=== PATIENT | female | born 1935 | race Hispanic/Latino ===

== ENCOUNTER 2016-05-20 19:05 | Inpatient (IN) | payer MEDICARE, MEDICAID ==
[2016-05-20 19:11] VITALS: BMI 21.2
[2016-05-20 20:05] LABS: ADD MANUAL DIFF? NO
[2016-05-20 20:10] LABS: BASO # 0.01 K/mm3 (0.0-2.0); BASO % 0.1 % (0.0-3.0); EOS # 0.1 (0.0-0.7); EOS % 0.5 % (1.5-5.0); GRAN # 7.93 (1.4-6.5); GRAN % 79.8 % (50.0-68.0); HEMATOCRIT 39.4 % (36.0-48.0); LYMPH # 1.2 (1.2-3.4); LYMPH % 11.7 % (22.0-35.0); MEAN CELL VOLUME 88.3 fL (80.0-105.0); MEAN CORPUSCULAR HEMOGLOBIN 28.7 pg (25.0-35.0); MEAN CORPUSCULAR HGB CONC 32.5 g/dl (31.0-37.0); MEAN PLATELET VOLUME 11.4 fl (7.0-11.0); MONO # 0.8 (0.1-0.6); MONO % 7.9 % (1.0-6.0); PLATELET COUNT 247 10^3/uL (120.0-450.0); RED CELL DISTRIBUTION WIDTH 13.4 % (11.5-14.5); WHITE BLOOD COUNT 9.9 10^3/ul (4.5-11.0)
[2016-05-20 20:19] LABS: ALB/GLOB RATIO 1.2 (1.1-1.8); ALKALINE PHOSPHATASE 84 U/L (38-133); ALT/SGPT 18 U/L (7-56); AST/SGOT 34 U/L (15-39); BILIRUBIN,TOTAL 0.8 mg/dL (0.2-1.3); BLOOD UREA NITROGEN 22 mg/dL (7-21); CALCIUM 9.3 mg/dL (8.4-10.5); CARBON DIOXIDE 32 mmol/L (21-33); CHLORIDE 103 mmol/L (98-107); GFR AFRICAN-AMERICAN > 60; GLUCOSE,RANDOM 120 mg/dL (70-110); LIPASE 73 U/L (23-300); SODIUM 142 mmol/L (132-148); TOTAL PROTEIN 7.4 g/dL (5.8-8.3)
[2016-05-20 20:40] LABS: TROPONIN I < 0.01 ng/mL
[2016-05-20] MEDS: Sodium Chloride 0.9% 1,000 ML IV SCH (21:02)
--- NOTE | 2016-05-20 21:02 | ED PDOC ---
Arrival/HPI - General Chief Complaint: Flu-like Symptoms Time Seen by Provider: 05/20/16 19:11 Historian: Patient - History of Present Illness Narrative History of Present Illness (Text): 05/20/16 19:20 Emerita Luna is an 81 year old female, whose past medical history includes COPD, CAD, and bowel obstruction, who presents to the Emergency department for dizziness. Patient states she has been feeling dizzy and near syncopal with 1 episode of vomiting since yesterday. Patient notes she was recently exposed to someone with influenza. Patient denies any fever, chills, chest pain, shortness of breath, nausea, diarrhea, urinary symptoms, back pain, neck pain, headache, blurred vision, focal neurological deficits, or any other complaints. PMD: Dr. Page Gonzalez Time/Duration: Other (yesterday) Symptom Onset: Gradual Symptom Course: Unchanged Activities at Onset: Rest, Light Context: Home Past Medical History - Provider Review Nursing Documentation Reviewed: Yes - Tetanus Immunization Tetanus Immunization: Unknown - Cardiac Hx Hypertension: Yes - Pulmonary Hx Asthma: Yes Hx Bronchitis: Yes Hx Chronic Obstructive Pulmonary Disease (COPD): Yes - HEENT Other/Comment: TONSILLECTOMY - Musculoskeletal/Rheumatological Hx Falls: No Hx Unsteady Gait: Yes (CANE) - Gastrointestinal Hx Gastroesophageal Reflux: Yes - Psychiatric Hx Depression: No Hx Emotional Abuse: No Hx Physical Abuse: No Hx Substance Use: No - Surgical History Hx Appendectomy: Yes Hx Hysterectomy: Yes Hx Tonsillectomy: Yes - Suicidal Assessment Feels Threatened In Home Enviroment: No Family/Social History - Physician Review Nursing Documentation Reviewed: Yes Family/Social History: No Known Family HX Smoking Status: Former Smoker Hx Alcohol Use: No Hx Substance Use: No Hx Substance Use Treatment: No Allergies/Home Meds Allergies/Adverse Reactions: Allergies No Known Allergies Allergy (Verified 01/26/16 16:16) Home Medications: Home Meds Medication Instructions Recorded Confirmed Esomeprazole Magnesium [Nexium] 40 mg PO DAILY 10/26/11 05/21/16 Isosorbide Mononitrate 30 mg PO DAILY 10/26/11 05/21/16 Metoprolol Tartrate [Lopressor] 25 mg PO DAILY 01/26/16 05/21/16 Simvastatin [Zocor] 20 mg PO DAILY 01/26/16 05/21/16 Albuterol Sulfate [Proair Hfa] 0.09 mg IH PRN PRN 05/20/16 05/20/16 Review of Systems - Physician Review All systems were reviewed & negative as marked: Yes - Review of Systems Constitutional: Normal. absent: Fevers Eyes: Normal ENT: Normal Respiratory: Normal. absent: SOB Cardiovascular: Other (+near-syncopal). absent: Chest Pain Gastrointestinal: Vomiting. absent: Diarrhea Genitourinary Female: Normal. absent: Dysuria, Frequency, Hematuria, Urine Output Changes Musculoskeletal: Normal. absent: Back Pain, Neck Pain Skin: Normal. absent: Rash Neurological: Dizziness. absent: Headache Endocrine: Normal Hemo/Lymphatic: Normal Psychiatric: Normal Physical Exam Vital Signs Reviewed: Yes Vital Signs Temp Pulse Resp BP Pulse Ox 05/20/16 22:01 98.2 F 75 17 151/79 H 97 05/20/16 19:13 97.9 F 90 20 177/87 H 98 Temperature: Afebrile Blood Pressure: Hypertensive Pulse: Regular Respiratory Rate: Normal Appearance: Positive for: Well-Appearing, Non-Toxic, Comfortable Pain Distress: None Mental Status: Positive for: Alert and Oriented X 3 - Systems Exam Head: Present: Atraumatic, Normocephalic Pupils: Present: PERRL Extroacular Muscles: Present: EOMI Conjunctiva: Present: Normal Mouth: Present: Moist Mucous Membranes Neck: Present: Normal Range of Motion Respiratory/Chest: Present: Clear to Auscultation, Good Air Exchange. No: Respiratory Distress, Accessory Muscle Use Cardiovascular: Present: Regular Rate and Rhythm, Normal S1, S2. No: Murmurs Abdomen: Present: Normal Bowel Sounds. No: Tenderness, Distention, Peritoneal Signs Back: Present: Normal Inspection Upper Extremity: Present: Normal Inspection. No: Cyanosis, Edema Lower Extremity: Present: Normal Inspection. No: Edema Neurological: Present: GCS=15, CN II-XII Intact, Speech Normal Skin: Present: Warm, Dry, Normal Color. No: Rashes Psychiatric: Present: Alert, Oriented x 3, Normal Insight, Normal Concentration Medical Decision Making ED Course and Treatment: 05/20/16 19:20 Impression: 81 year old female complaining of dizziness, near-syncope, and vomiting. Plan: -- EKG -- CXR -- Labs, troponin, lipase, blood culture, rapid influenza -- Urinalysis, urine culture -- IV fluids -- Zofran -- Antivert -- Reassess and disposition Prior Visits: Notes and results from previous visits were reviewed. On 01/26/2016, pt was seen in the ED for weakness, nausea, and vomiting. Pt was d/c home. Progress Notes: Reviewed EKG, NSR at [address] bpm[address] Non-specific ST/T wave changes. 05/20/16 20:27 Reviewed radiology, Chest X-ray shows no active disease. 05/20/16 21:[address] Madi Gonzalez, who is aware and agrees with plan. Accepts pt in to his service. Pt will go to remote telemetry observation for near-syncope. Pt is no acute distress. Discussed results and hospital observation plan with pt , who is aware and verbalizes understanding. 05/25/16 07:05 - Lab Interpretations Microbiology Results: Microbiology Results 05/20/16 20:10 Blood-Venous Blood Culture - Preliminary NO GROWTH AFTER 4 DAYS 05/20/16 19:50 Blood-Venous Blood Culture - Preliminary NO GROWTH AFTER 4 DAYS 05/20/16 21:30 Urine,Clean Catch Urine Culture - Final 10-50,000 CFU/ML. MULTIPLE SPECIES. PROBABLE CONTAMINATION. Lab Results: 05/20/16 19:50 05/20/16 19:50 Lab Results 05/20/16 21:30: Urine Color Yellow, Urine Appearance Clear, Urine pH 7.0, Ur Specific Steele 1.015, Urine Protein Negative, Urine Glucose (UA) Negative, Urine Ketones Negative, Urine Blood Small H, Urine Nitrate Negative, Urine Bilirubin Negative, Urine Urobilinogen 0.2, Ur Leukocyte Esterase Trace H, Urine RBC 1 - 3, Urine WBC 2 - 5, Ur Epithelial Cells 3 - 4, Urine Bacteria Few 05/20/16 19:50: WBC 9.9 D, RBC 4.46, Hgb 12.8, Hct 39.4, MCV 88.3, MCH 28.7, MCHC 32.5, RDW 13.4, Plt Count 247, MPV 11.4 H, Gran % 79.8 H, Lymph % (Auto) 11.7 L, Gaines % (Auto) 7.9 H, Eos % (Auto) 0.5 L, Baso % (Auto) 0.1, Gran # 7.93 H, Lymph # 1.2, Gaines # 0.8 H, Eos # 0.1, Baso # 0.01, Sodium 142, Potassium 4.0 , Chloride 103, Carbon Dioxide 32, Anion Gap 11, BUN 22 H, Creatinine 0.7, Est GFR ( Amer) > 60, Est GFR (Non-Af Amer) > 60, Random Glucose 120 H, Calcium 9.3, Total Bilirubin 0.8, AST 34, ALT 18, Alkaline Phosphatase 84, Troponin I < 0.01, Total Protein 7.4, Albumin 4.1, Globulin 3.4, Albumin/ Globulin Ratio 1.2, Lipase 73, Influenza Typ A,B (EIA) Negative for flu a/b I have reviewed the lab results: Yes - RAD Interpretation Narrative RAD Interpretations (Text): Chest X-ray shows no active disease. Radiology Orders: 05/20/16 19:23 CHEST ONE VIEW [RAD] Stat Activities Assistant: ED Physician - EKG Interpretation EKG Interpretation (Text): EKG: Ordered, reviewed, and independently interpreted the EKG. Rate : 83 BPM Rhythm : NSR Interpretation : Non-specific ST/T wave changes. Comparison : No acute change from previous EKG on 01/26/16. Interpreted by ED Physician: Yes Type: 12 lead EKG - Medication Orders Current Medication Orders: Discontinued Medications Acetaminophen (Tylenol 325mg Tab) 650 mg PO Q4H PRN PRN Reason: Fever >100.5 F Last Admin: 05/21/16 19:20 Dose: 650 MG [facility] Pain/Vitals Document 05/21/16 19:20 MLK (Rec: 05/21/16 19:21 MLK [id number]) Pain Reassessment Is This A Pain ReAssessment? No Presence of Pain Presence of Pain Yes Location Left, Right or Bilateral Right Pain Location Body Site Jaw Re-Assess: [facility] Pain/Vitals Document 05/21/16 20:20 TANNER (Rec: 05/22/16 05:38 TANNER [id number]) Pain Reassessment Is This A Pain ReAssessment? Yes Sleep Is patient sleeping during reassessment? Yes Pain Scale Used Pain Scale Used Numeric Atorvastatin Calcium (Lipitor) 20 mg PO DIN BRITTNEY Last Admin: 05/22/16 17:37 Dose: 20 MG Sodium Chloride (Sodium Chloride 0.9%) 1,000 mls @ 80 mls/hr IV .[id number] [facility] Last Admin: 05/22/16 01:40 Dose: 80 MLS/HR eMAR Start Stop Document 05/22/16 01:40 TANNER (Rec: 05/22/16 05:37 TANNER [id number]) Intravenous Solution Start Date 05/22/16 Start Time 01:40 Ceftriaxone Sodium (Rocephin 1 Gram Ivpb) 100 mls @ 100 mls/hr IVPB DAILY [facility] PRN Reason: Protocol Last Admin: 05/23/16 09:27 Dose: 100 MLS/HR eMAR Start Stop Document 05/23/16 09:27 ML (Rec: 05/23/16 09:27 ML [id number]) Intravenous Solution Start Date 05/23/16 Start Time 09:27 End Date 05/23/16 End time 10:00 Total Infusion Time 33 Isosorbide Mononitrate (Imdur) 30 mg PO DAILY [facility] Last Admin: 05/23/16 09:27 Dose: 30 MG Meclizine HCl (Antivert) 12.5 mg PO STAT STA Stop: 05/20/16 19:24 Last Admin: 05/20/16 19:55 Dose: 12.5 MG Metoprolol Succinate (Toprol Xl) 25 mg PO BRK [facility] Last Admin: 05/23/16 08:19 Dose: 25 MG Ondansetron HCl (Zofran Inj) 4 mg IVP STAT STA Stop: 05/20/16 19:24 Last Admin: 05/20/16 19:55 Dose: 4 MG IVP Administration Document 05/20/16 19:55 RD (Rec: 05/20/16 19:55 RD [id number]) Charges for Administration # of IVP Administrations 1 Pantoprazole Sodium (Protonix Ec Tab) 40 mg PO 0630 [facility] Last Admin: 05/23/16 05:33 Dose: 40 MG - Scribe Statement The provider has reviewed the documentation as recorded by the Zarina Barnett Provider Attestation: All medical record entries made by the Armaniibfarzana were at my direction and personally dictated by me. I have reviewed the chart and agree that the record accurately reflects my personal performance of the history, physical exam, medical decision making, and the department course for this patient. I have also personally directed, reviewed, and agree with the discharge instructions and disposition. Disposition/Present on Arrival - Present on Arrival Any Indicators Present on Arrival: No History of DVT/PE: No History of Uncontrolled Diabetes: No Urinary Catheter: No History of Decub. Ulcer: No History Surgical Site Infection Following: None - Disposition Have Diagnosis and Disposition been Completed?: Yes Diagnosis: Near syncope Disposition: HOSPITALIZED Disposition Time: 21:25 Condition: GOOD
[2016-05-20 21:57] LABS: URINE BILIRUBIN NEGATIVE (NEGATIVE); URINE BLOOD SMALL (NEGATIVE); URINE GLUCOSE (UA) NEGATIVE (NEGATIVE); URINE KETONE NEGATIVE (NEGATIVE); URINE LEUKOCYTE ESTERASE TRACE Leu/uL (NEGATIVE); URINE PROTEIN NEGATIVE mg/dL (<30 mg/dL); URINE UROBILINOGEN 0.2 E.U./dL (<1 E.U./dL)
[2016-05-20 22:00] LABS: URINE APPEARANCE CLEAR (CLEAR); URINE COLOR YELLOW (YELLOW)
[2016-05-20 22:05] LABS: URINE BACTERIA FEW (NEG)
--- NOTE | 2016-05-21 08:38 | RAD ---
HISTORY: pain COMPARISON: Chest x-ray performed 01/26/16 TECHNIQUE: Chest, one view. FINDINGS: LUNGS: No focal consolidation. Please note that chest x-ray has limited sensitivity for the detection of pulmonary masses. PLEURA: No significant pleural effusion identified. No definite pneumothorax . CARDIOVASCULAR: The cardiomediastinal silhouette appears within normal limits of size. OSSEOUS STRUCTURES: No acute osseous abnormality identified. VISUALIZED UPPER ABDOMEN: Unremarkable. OTHER FINDINGS: None. IMPRESSION: No focal consolidation, significant pleural effusion, or definite pneumothorax identified.
[2016-05-21] MEDS: Sodium Chloride 0.9% 1,000 ML IV SCH (09:17)
--- NOTE | 2016-05-21 09:57 | CARD ---
APPROVED REPORT EKG Measurement Heart [id number] <Conclusion> Normal sinus rhythm PRWP V 1 - 3, possible lead positioning Otherwise no change c/w ECG 01/26/16
[2016-05-21] MEDS: Metoprolol Succinate 25 mg XL Tab PO SCH (12:59)
[2016-05-21] MEDS: cefTRIAXone 1 gm 100 ML IVPB SCH (13:00)
[2016-05-22] MEDS: Sodium Chloride 0.9% 1,000 ML IV SCH (01:40)
[2016-05-22] MEDS: Pantoprazole 40 mg EC Tab PO SCH (05:36)
[2016-05-22] MEDS: Metoprolol Succinate 25 mg XL Tab PO SCH (09:25)
[2016-05-22] MEDS: cefTRIAXone 1 gm 100 ML IVPB SCH (09:25)
--- NOTE | 2016-05-22 11:30 | HP ---
HISTORY OF PRESENT ILLNESS: The patient is an 81-year-old female who presented to the Emergency Room yesterday evening complaining of dizziness. She stated that she was near syncopal. She had 1 episo de of vomiting over the past day or 2. PAST MEDICAL HISTORY: Positive for coronary artery disease, chronic obstructive pulmonary disease. She also has a history of bowel obstruction in the past. She has a history of hypertension, bronchit is. HOME MEDICATIONS: Included Nexium 40 mg, isosorbide 30 mg, metoprolol tartrate 25 mg, simvastatin 20 mg, and ProAir HFA as needed. SOCIAL HISTORY: She is a former smoker, nonalcohol drinker. ALLERGIES: No known medical allergies. PHYSICAL EXAMINATION: VITAL SIGNS: Blood pressure is 151/79. Heart rate is 75, and she is afebrile. GENERAL: When see, she is awake, alert, and oriented. There is a rather massive swelling on the rig ht side of her face and jaw. The patient states that she has an abscess in her tooth, and was unable to get to see her dentist. NECK: Supple. It is tender to palpation. It is non-erythematous. Her neck is supple with no lymph adenopathy and no goiter appreciated. LUNGS: Clear, but distant. HEART: Heart sounds are regular. ABDOMEN: Soft, flat, nontender. EXTREMITIES: Free of cyanosis, clubbing, or edema. LABORATORY STUDIES: Show a white blood cell count to be 9.9. Hemoglobin and hematocrit are 12.8 and 39.4. Platelet count is 247. Sodium is 142, potassium 4.0. BUN is 25, creatinine 0.7. Nonfasting glucose is 120. Her chest x-ray shows no active disease. EKG shows regular sinus with an old anterior wall myocardial infarction. So the patient is admitted. I was surprised to see the swollen right side of her face with abscess. She is to be started on Rocephin for this, and we will follow the patient closely. Layton Gonzalez MD cc: [id number] TT: 05/22/2016 11:30:11 rosalia
[2016-05-22 15:52] LABS: HEMATOCRIT 35.2 % (36.0-48.0); MEAN CELL VOLUME 89.1 fL (80.0-105.0); MEAN CORPUSCULAR HEMOGLOBIN 28.9 pg (25.0-35.0); MEAN CORPUSCULAR HGB CONC 32.4 g/dl (31.0-37.0); RED CELL DISTRIBUTION WIDTH 13.3 % (11.5-14.5); WHITE BLOOD COUNT 8.9 10^3/ul (4.5-11.0)
[2016-05-22 16:07] LABS: ALB/GLOB RATIO 1.2 (1.1-1.8); ALKALINE PHOSPHATASE 69 U/L (38-133); ALT/SGPT 21 U/L (7-56); AST/SGOT 29 U/L (15-39); BILIRUBIN,TOTAL 0.7 mg/dL (0.2-1.3); BLOOD UREA NITROGEN 15 mg/dL (7-21); CALCIUM 8.6 mg/dL (8.4-10.5); CARBON DIOXIDE 28 mmol/L (21-33); CHLORIDE 105 mmol/L (98-107); GFR AFRICAN-AMERICAN > 60; GLUCOSE,RANDOM 94 mg/dL (70-110); POTASSIUM 4.6 mmol/L (3.6-5.0); SODIUM 142 mmol/L (132-148); TOTAL PROTEIN 6.7 g/dL (5.8-8.3)
[2016-05-22 18:27] VITALS: RESP 20; O2SAT 97
[2016-05-23] MEDS: Pantoprazole 40 mg EC Tab PO SCH (05:33)
[2016-05-23] MEDS: Metoprolol Succinate 25 mg XL Tab PO SCH (08:19)
[2016-05-23 08:55] VITALS: BP 162/70; TEMP 98.8
[2016-05-23] MEDS: cefTRIAXone 1 gm 100 ML IVPB SCH (09:27)
--- NOTE | 2016-05-23 10:41 | PN ---
DATE: 05/22/2016 The patient is an 81-year-old female with a history of coronary artery disease, chronic obstructive p ulmonary disease, history of bowel obstruction, hypertension and bronchitis who presented to the [facility] complaining of dizziness and near syncope. She had 1 episode of vomiting prior to admissi on. When seen, she had massive swelling of the right side of her face. She attributed this to a too th abscess. She was started on intravenous antibiotics. When seen today, the patient is sitting up in bed. She is awake, alert, and oriented. Swelling on the right side of her face is markedly decre ased and claims she is feeling overall much better. PHYSICAL EXAMINATION: HEENT: Her right face, the swelling is down. There is no erythema, it is just mildly tender on palp ation. LUNGS: Clear. HEART: Regular. ABDOMEN: Soft and nontender. EXTREMITIES: Free of cyanosis, clubbing or edema. VITAL SIGNS: She is afebrile at 98.7, blood pressure is 160/68, heart rate is 75. LABORATORY DATA: White blood cell count is 8.9. BUN and creatinine are 15 and 0.7 respectively. El ectrolytes are normal. So at this point, we are continuing with her medications from home. We are continuing with the intra venous antibiotics. We are hopeful of changing her to oral antibiotics within the next day or 2 and then discharge to home on oral antibiotics. Layton Gonzalez MD cc: [phone] TT: 05/23/2016 10:41:18 Confirmation # [id number] Dictation # [id number] thom
[2016-05-23 11:53] VITALS: PULSE 72
--- NOTE | 2016-05-24 10:57 | DS ---
This is an 81-year-old woman I have known for many years with severe COPD and coronary artery disease . She felt weak and tired while visiting a friend, and thought it best to come to the Emergency Room because she did not know why she was feeling this way. She tells me that there was no mention in [facility] Emergency Room of syncope, loss of consciousness, or faint feeling, and they did not talk to her ab out the swelling on her right face and her ongoing dental problems, but apparently when she was admit sonido to the floor, her right face was markedly swollen. There was tenderness and heat, erythema, and warmth from a dental abscess. She was treated with IV antibiotics and improved dramatically. Today I am seeing her. Her white count is normal. She is afebrile. She feels comfortable and ready to go home, and so we will discharge. FINAL DISCHARGE DIAGNOSES: 1. Dental abscess from chronic dental caries on the right maxilla. 2. Chronic obstructive pulmonary disease. 3. History of tobacco use. 4. Coronary artery disease. PLAN: The patient was discharged to home. Prescription was called in for antibiotics - Pen-Vee K 25 0 mg q.i.d. x 7 days, and she will follow up with us in 1 week. I talked to her again this time, as I have in the past, about the importance of dental followup. She may need extraction of that carious tooth. Ceasar Gonzalez MD cc: [id number] TT: 05/24/2016 10:56:40 rosalia
== END 2016-05-23 14:48 | disposition home or self-care (01) | DRG 159 ==
LOC: ED 19:05 → ERH 21:26 → UNDOADMOB 21:26 → 3RSO 22:26 → ERH 22:26 → 3RSO 05-22 11:39 → INTOOBSV 05-22 12:32 → OBSVTOIN 05-22 12:32
PROVIDERS: ADMIT Internal Medicine; ATTEND Internal Medicine
DX: K04.7 Periapical abscess without sinus (principal); K02.9 Dental caries, unspecified; R55 Syncope and collapse; I25.10 Atherosclerotic heart disease of native coronary artery without angina pectoris; J44.9 Chronic obstructive pulmonary disease, unspecified; I10 Essential (primary) hypertension; R42 Dizziness and giddiness; I25.2 Old myocardial infarction; Z72.0 Tobacco use

== ENCOUNTER 2016-11-17 00:45 | Emergency (ER) | payer MEDICARE, MEDICAID ==
[2016-11-17 00:45] VITALS: BMI 21.2
[2016-11-17 00:59] VITALS: RESP 18
[2016-11-17] MEDS ORDERED: Sodium Chloride 0.9% 1,000 ML IV STA (01:45)
--- NOTE | 2016-11-17 01:50 | ED PDOC ---
Arrival/HPI - General Chief Complaint: Abdominal Pain Time Seen by Provider: 11/17/16 01:44 Historian: Patient - History of Present Illness Narrative History of Present Illness (Text): 11/17/16 01:45 An 81 year old female whose past medical history includes gastritis, presents to the Emergency department with epigastric abdominal discomfort. The patient states that the discomfort is identical to her gastritis symptoms. The patient denies fevers, chills, headache, dizziness, abdominal pain, nausea, vomiting, diarrhea, back pain, neck pain, chest pain, shortness of breath, dyspnea on exertion, cough or any other complaint. Time/Duration: Prior to Arrival Symptom Onset: Sudden Symptom Course: Unchanged Activities at Onset: Rest, Light Context: Home Past Medical History - Provider Review Nursing Documentation Reviewed: Yes - Tetanus Immunization Tetanus Immunization: Unknown - Reproductive Menopause: Yes - Cardiac Hx Hypertension: Yes - Pulmonary Hx Asthma: Yes Hx Bronchitis: Yes Hx Chronic Obstructive Pulmonary Disease (COPD): Yes - HEENT Other/Comment: TONSILLECTOMY - Musculoskeletal/Rheumatological Hx Falls: No Hx Unsteady Gait: Yes (CANE) - Gastrointestinal Hx Gastritis: Yes Hx Gastroesophageal Reflux: Yes - Psychiatric Hx Depression: No Hx Emotional Abuse: No Hx Physical Abuse: No Hx Substance Use: No - Surgical History Hx Appendectomy: Yes Hx Hysterectomy: Yes Hx Tonsillectomy: Yes - Suicidal Assessment Feels Threatened In Home Enviroment: No Family/Social History - Physician Review Nursing Documentation Reviewed: Yes Family/Social History: No Known Family HX Smoking Status: Former Smoker Hx Alcohol Use: No Hx Substance Use: No Hx Substance Use Treatment: No Allergies/Home Meds Allergies/Adverse Reactions: Allergies No Known Allergies Allergy (Verified 01/26/16 16:16) Home Medications: Home Meds Medication Instructions Recorded Confirmed Isosorbide Mononitrate 30 mg PO DAILY 10/26/11 11/17/16 Metoprolol Tartrate [Lopressor] 25 mg PO DAILY 01/26/16 11/17/16 Simvastatin [Zocor] 20 mg PO DAILY 01/26/16 11/17/16 Albuterol Sulfate [Proair Hfa] 0.09 mg IH PRN PRN 05/20/16 11/17/16 Review of Systems - Physician Review All systems were reviewed & negative as marked: Yes Physical Exam - Physical Exam Narrative Physical Exam (Text): 11/17/16 01:50 - Review of Systems Constitutional: Normal. absent: Fatigue, Weight Change, Fevers Eyes: Normal ENT: denies sore throat, denies tristhmus Respiratory: Normal. absent: SOB, Cough, Sputum Cardiovascular: absent: Chest Pain, Palpitations, Syncope Gastrointestinal: (+) Epigastric Abdominal Pain absent: Diarrhea, Nausea, Vomiting Genitourinary: Normal. absent: Dysuria, Frequency, Hematuria Musculoskeletal: Normal. absent: Arthralgias, Back Pain, Neck Pain Skin: no rashes, no erythema Neurological: absent: Focal Weakness Endocrine: Normal Hemo/Lymphatic: Normal Psychiatric: No suicidal or homicidal ideations Physical exam Patient appears age appropriate in no distress, speaking full sentences without difficulty - Systems Exam Head: Present: Atraumatic, Normocephalic Pupils: Present: PERRL Extroacular Muscles: Present: EOMI Conjunctiva: Present: Normal Mouth: Present: Moist Mucous Membranes Neck: Present: Normal Range of Motion. No: MIDLINE TENDERNESS, Paraspinal Tenderness Respiratory/Chest: Present: Clear to Auscultation, Good Air Exchange. No: Respiratory Distress, Accessory Muscle Use, Tachypneic Cardiovascular: Present: Regular Rate and Rhythm, Normal S1, S2, Peripheal Pulses Present. No: Murmurs Abdomen: Present: Epigastric tenderness to palpation, Normal Bowel Sounds. No: Distention, Peritoneal Signs, Rebound, Guarding Back: Present: Normal Inspection. No: Midline Tenderness, Paraspinal Tenderness Upper Extremity: Present: Normal Inspection. No: Cyanosis, Edema Lower Extremity: Present: Normal Inspection. No: Edema Neurological: Present: GCS=15, Speech Normal, cranial nerves II through XII fully intact with no cerebellar abnormality, neurosensory fully intact. No focal neurological deficits. Skin: Present: Warm, Dry, Normal Color. No: Rashes Lymphatic: Present: OX3, NI, NC Psychiatric: Present: Alert, Oriented x 3, Normal Insight, Normal Concentration Vital Signs Temp Pulse Resp BP Pulse Ox 11/17/16 05:41 98.1 F 100 H 18 149/80 96 11/17/16 00:55 98 F 94 H 18 189/90 H 100 Temperature: Afebrile Blood Pressure: Hypertensive Pulse: Tachycardic Respiratory Rate: Normal Appearance: Positive for: Well-Appearing, Non-Toxic, Comfortable Pain Distress: None Mental Status: Positive for: Alert and Oriented X 3 Medical Decision Making ED Course and Treatment: 11/17/16 01:52 Impression: An 81 year old female with a history of gastritis, presents with epigastric discomfort, similar to her gastritis symptoms. On exam, epigastric tenderness on palpation. Differential Diagnosis included but are not limited to: Non- Specific Abdominal Pain vs. Gastritis Plan: -- EKG -- CXR -- Labs -- Protonix and IV Fluids -- Reassess and disposition Prior Visits: Notes and results from previous visits were reviewed. On 05/22/2016 patient came in complaining of a near syncopal episode. Patient was hospitalized. Progress Notes: EKG: Ordered, reviewed, and independently interpreted the EKG. Rate : 86 BPM Rhythm : NSR Interpretation : No ST changes, normal axis, normal intervals. Chest xray shows no cardiomegaly, no pneumothorax, no effusion, no infiltrates. Read and interpreted by me. 11/17/16 04:49: Patient is resting comfortably in bed. No complaints at this time. Repeat Troponin ordered. 11/17/16 06:03 on reeval, pt states her symptoms fully resolved, denies chest or abdominal pain states she feels comfortable being dc'd home with outpatient f/u pt informed she need to also f/u with a cell biology scientist pt asked to get a protonix rx. instructed to dc her current PPI she is taking Patient's repeat abdominal exam is soft, nontender, non distended with positive bowel sounds in all 4 quadrants and no peritoneal signs. Patient is tolerating PO without any difficulty. Pt states she understands to return to the ER right away for new or worsening symptoms or for inability to f/u with PMD or specialist as instructed. Patient states that she fully agrees with and understands discharge instructions. States that she agrees with the plan and disposition. Verbalized and repeated discharge instructions and plan. I have given the patient opportunity to ask any additional questions. - Lab Interpretations Lab Results: 11/17/16 02:00 11/17/16 02:00 Lab Results 11/17/16 04:50: Lactate Dehydrogenase 399, Total Creatine Kinase 54, Troponin I < 0.01 11/17/16 02:00: Sodium 140, Potassium 5.2 H, Chloride 101, Carbon Dioxide 30, Anion Gap 14, BUN 21, Creatinine 0.8, Est GFR ( Amer) > 60, Est GFR (Non- Af Amer) > 60, Random Glucose 130 H, Calcium 9.1, Total Bilirubin 0.7, AST 32, ALT 25, Alkaline Phosphatase 92, Lactate Dehydrogenase 421, Total Creatine Kinase 51, Troponin I < 0.01, Total Protein 7.0, Albumin 4.1, Globulin 2.9, Albumin/Globulin Ratio 1.4 11/17/16 02:00: PT 10.7, INR 0.99, APTT 25.9 11/17/16 02:00: WBC 10.9 D, RBC 4.24, Hgb 12.2, Hct 37.2, MCV 87.7, MCH 28.8, MCHC 32.8, RDW 13.6, Plt Count 215, MPV 11.0, Gran % 82.0 H, Lymph % (Auto) 10.3 L, [place] % (Auto) 7.0 H, Eos % (Auto) 0.6 L, Baso % (Auto) 0.1, Gran # 8.95 H, Lymph # 1.1 L, [place] # 0.8 H, Eos # 0.1, Baso # 0.01 - RAD Interpretation Radiology Orders: 11/17/16 01:45 CHEST PORTABLE [RAD] Stat - Medication Orders Current Medication Orders: Discontinued Medications Albuterol Sulfate (Albuterol 0.5% Inhal Hilary (2.5 Mg/0.5 Ml) Ud) 2.5 mg IH STAT STA Stop: 11/17/16 03:38 Last Admin: 11/17/16 04:07 Dose: 2.5 mg Sodium Chloride (Sodium Chloride 0.9%) 1,000 mls @ 1,000 mls/hr IV .Q1H STA Stop: 11/17/16 02:44 Last Admin: 11/17/16 02:10 Dose: 1,000 mls/hr Pantoprazole Sodium (Protonix Inj) 40 mg IVP STAT STA Stop: 11/17/16 01:46 Last Admin: 11/17/16 02:10 Dose: 40 mg - Scribe Statement The provider has reviewed the documentation as recorded by the Zarina Golden Provider Armaniibe Attestation: All medical record entries made by the Armaniibfarzana were at my direction and personally dictated by me. I have reviewed the chart and agree that the record accurately reflects my personal performance of the history, physical exam, medical decision making, and the department course for this patient. I have also personally directed, reviewed, and agree with the discharge instructions and disposition Disposition/Present on Arrival - Present on Arrival Any Indicators Present on Arrival: No History of DVT/PE: No History of Uncontrolled Diabetes: No Urinary Catheter: No History of Decub. Ulcer: No History Surgical Site Infection Following: None - Disposition Have Diagnosis and Disposition been Completed?: Yes Diagnosis: Epigastric pain Disposition: HOME/ ROUTINE Disposition Time: 06:17 Patient Plan: Discharge Condition: GOOD Discharge Instructions (ExitCare): Gastritis (ED) Additional Instructions: PLEASE RETURN TO THE EMERGENCY DEPARTMENT FOR NEW OR WORSENING SYMPTOMS. RETURN RIGHT AWAY IF YOU CANNOT FOLLOW UP WITH YOUR PRIMARY CARE DOCTOR, CLINIC, OR SPECIALIST IN 1-2 DAYS. Prescriptions: Pantoprazole Sodium [Protonix] 40 mg PO DAILY #14 ect Referrals: Layton Gonzalez MD [Staff Provider] - Follow up with primary Ceasar Gonzalez MD [Family Provider] - Follow up with primary Renard Nino MD [Staff Provider] - Follow up with primary Tolu Quijano MD [Staff Provider] - Follow up with primary Forms: [employer] (Frisian)
[2016-11-17 02:18] LABS: BASO # 0.01 K/mm3 (0.0-2.0); BASO % 0.1 % (0.0-3.0); EOS # 0.1 (0.0-0.7); EOS % 0.6 % (1.5-5.0); GRAN # 8.95 (1.4-6.5); HEMATOCRIT 37.2 % (36.0-48.0); LYMPH # 1.1 (1.2-3.4); LYMPH % 10.3 % (22.0-35.0); MEAN CELL VOLUME 87.7 fl (80.0-105.0); MEAN CORPUSCULAR HEMOGLOBIN 28.8 pg (25.0-35.0); MEAN CORPUSCULAR HGB CONC 32.8 g/dl (31.0-37.0); MONO # 0.8 (0.1-0.6); RED CELL DISTRIBUTION WIDTH 13.6 % (11.5-14.5); WHITE BLOOD COUNT 10.9 10^3/ul (4.5-11.0)
[2016-11-17 02:35] LABS: INR 0.99 (0.93-1.08); PARTIAL THROMBOPLASTIN TIME 25.9 Seconds (23.7-30.8)
[2016-11-17 02:38] LABS: ALB/GLOB RATIO 1.4 (1.1-1.8); ALKALINE PHOSPHATASE 92 U/L (38-126); ALT/SGPT 25 U/L (7-56); AST/SGOT 32 U/L (14-36); BILIRUBIN,TOTAL 0.7 mg/dL (0.2-1.3); BLOOD UREA NITROGEN 21 mg/dL (7-21); CALCIUM 9.1 mg/dL (8.4-10.5); CARBON DIOXIDE 30 mmol/L (21-33); GFR AFRICAN-AMERICAN > 60; GLUCOSE,RANDOM 130 mg/dL (70-110); POTASSIUM 5.2 mmol/L (3.6-5.0); SODIUM 140 mmol/L (132-148)
[2016-11-17 02:42] LABS: CHLORIDE 101 mmol/L (98-107)
[2016-11-17 03:15] LABS: TROPONIN I < 0.01 ng/mL
[2016-11-17] MEDS ORDERED: Albuterol 0.5% Inhal Sol (2.5 mg/0.5 ml) UD IH STA (03:37)
[2016-11-17 05:42] VITALS: BP 149/80; PULSE 100; TEMP 98.1; O2SAT 96
[2016-11-17 05:43] LABS: TROPONIN I < 0.01 ng/mL
--- NOTE | 2016-11-17 09:40 | RAD ---
HISTORY: cough COMPARISON: 05/20/2016 FINDINGS: LUNGS: No active pulmonary disease. PLEURA: No significant pleural effusion identified, no pneumothorax apparent. CARDIOVASCULAR: Normal. OSSEOUS STRUCTURES: No significant abnormalities. VISUALIZED UPPER ABDOMEN: Normal. OTHER FINDINGS: None. IMPRESSION: No active disease.
--- NOTE | 2016-11-17 16:46 | CARD ---
APPROVED REPORT EKG Measurement Heart [id number] <Conclusion> Normal sinus rhythm Normal ECG
== END 2016-11-17 06:20 | disposition home or self-care (01) ==
LOC: ED 00:45
DX: R10.13 Epigastric pain (principal)
CPT/HCPCS: 71010; 80053; 82550; 83615; 84484; 85025; 85610; 85730; 93005; 96361; 96374; 99283; C9113; J7040

== ENCOUNTER 2017-04-24 10:16 | Emergency (ER) | payer MEDICARE, MEDICAID ==
[2017-04-24 10:21] VITALS: BMI 21.9
[2017-04-24 10:25] VITALS: TEMP 97.6
--- NOTE | 2017-04-24 10:43 | ED PDOC ---
Arrival/HPI - General Chief Complaint: Dizziness/Lightheaded Time Seen by Provider: 04/24/17 10:18 Historian: Patient - History of Present Illness Narrative History of Present Illness (Text): 04/24/17 10:35 Emerita Luna is an 82 year old female, whose past medical history includes hypertension and COPD, who presents to the emergency department complaining of high blood pressure associated with dizziness since 4 days ago. Patient reports she went to her PMD who prescribed her medication for vertigo. Additionally, she complains of an episode of vomiting. Patient denies shortness of breath, chest pain, cough, fever, or other complaints. PMD: Dr. Ceasar Gonzalez Time/Duration: < week (4 days) Symptom Onset: Sudden Symptom Course: Unchanged Activities at Onset: Light Context: Home Past Medical History - Provider Review Nursing Documentation Reviewed: Yes - Infectious Disease Hx of Infectious Diseases: None - Tetanus Immunization Tetanus Immunization: Unknown - Reproductive Menopause: Yes - Cardiac Hx Hypertension: Yes - Pulmonary Hx Asthma: Yes Hx Bronchitis: Yes Hx Chronic Obstructive Pulmonary Disease (COPD): Yes - HEENT Other/Comment: TONSILLECTOMY - Musculoskeletal/Rheumatological Hx Falls: No Hx Unsteady Gait: Yes (CANE) - Gastrointestinal Hx Gastritis: Yes Hx Gastroesophageal Reflux: Yes - Psychiatric Hx Substance Use: No - Surgical History Hx Appendectomy: Yes Hx Hysterectomy: Yes Hx Tonsillectomy: Yes - Anesthesia Hx Anesthesia Reactions: No Hx Malignant Hyperthermia: No - Suicidal Assessment Feels Threatened In Home Enviroment: No Family/Social History - Physician Review Nursing Documentation Reviewed: Yes Family/Social History: Unknown Family HX Smoking Status: Former Smoker Hx Alcohol Use: No Hx Substance Use: No Hx Substance Use Treatment: No Allergies/Home Meds Allergies/Adverse Reactions: Allergies No Known Allergies Allergy (Verified 01/26/16 16:16) Home Medications: Home Meds Medication Instructions Recorded Confirmed Isosorbide Mononitrate 30 mg PO DAILY 10/26/11 04/24/17 Metoprolol Tartrate [Lopressor] 25 mg PO DAILY 01/26/16 04/24/17 Simvastatin [Zocor] 20 mg PO DAILY 01/26/16 04/24/17 Albuterol Sulfate [Proair Hfa] 0.09 mg IH PRN PRN 05/20/16 04/24/17 amLODIPine [Norvasc] 5 mg PO DAILY 04/24/17 04/24/17 Review of Systems - Review of Systems Constitutional: absent: Fevers Eyes: absent: Vision Changes Respiratory: absent: SOB, Cough Cardiovascular: absent: Chest Pain Gastrointestinal: Vomiting. absent: Abdominal Pain, Diarrhea Genitourinary Female: absent: Dysuria Musculoskeletal: absent: Back Pain Skin: absent: Rash Neurological: Dizziness Endocrine: absent: Diaphoresis Physical Exam Vital Signs Reviewed: Yes Vital Signs Temp Pulse Resp BP Pulse Ox 04/24/17 12:08 71 16 136/70 97 04/24/17 10:24 97.6 F 82 18 158/86 H 100 Temperature: Afebrile Blood Pressure: Hypertensive Pulse: Regular Respiratory Rate: Normal Appearance: Positive for: Well-Appearing, Non-Toxic, Comfortable Pain Distress: None Mental Status: Positive for: Alert and Oriented X 3 - Systems Exam Head: Present: Atraumatic, Normocephalic Pupils: Present: PERRL Extroacular Muscles: Present: EOMI, Other (horizontal nystagmus) Conjunctiva: Present: Normal Respiratory/Chest: Present: Clear to Auscultation, Good Air Exchange. No: Respiratory Distress, Accessory Muscle Use, Wheezes, Rales, Retracting, Rhonchi Cardiovascular: Present: Regular Rate and Rhythm, Normal S1, S2. No: Murmurs Abdomen: Present: Normal Bowel Sounds. No: Tenderness, Distention, Peritoneal Signs, Rebound, Guarding Upper Extremity: Present: Normal Inspection, Normal ROM, NORMAL PULSES, Neurovascularly Intact, Capillary Refill < 2s. No: Cyanosis, Edema, Tenderness , Swelling, Erythema Lower Extremity: Present: Normal Inspection, NORMAL PULSES, Normal ROM, Neurovascularly Intact, Capillary Refill < 2 s. No: Edema, CALF TENDERNESS, Cyanosis, Tenderness, Swelling, Erythema Neurological: Present: GCS=15, CN II-XII Intact, Speech Normal, Motor Func Grossly Intact, Normal Sensory Function, Memory Normal Skin: Present: Warm, Dry, Normal Color. No: Rashes Psychiatric: Present: Alert, Oriented x 3, Normal Insight, Normal Concentration Medical Decision Making ED Course and Treatment: 04/24/17 Impression: 82 year old female with horizontal nystagmus complaining of dizziness Differential Diagnosis included but are not limited to: vertigo consider central vs peripheral. Plan: -- EKG -- Labs -- Antivert -- Reassess and disposition Progress Notes: 04/24/17 10:48 [address] is refusing a CT head scan. states she has scared of ct. i offered her numerous times for sedation, benzo. she decliens. she repeatly asks for dc. home. EKG: Ordered, reviewed, and independently interpreted the EKG. Rate : 73 BPM Rhythm : NSR Interpretation : No ST-segment elevations or depressions, no T-wave inversions, normal intervals. Comparison : No previous EKG for comparison. 04/24/17 13:00 Leaving Against Medical Advice (AMA): The patient is choosing to leave against medical advice. I have personally explained to the patient that choosing to do so may result in permanent bodily harm or . I have discussed at great length that without further evaluation and monitoring there may be unforeseen circumstances and/or deterioration causing permanent bodily harm or as a result of their choice. The patient is alert, oriented, and shows the mental capacity to make clear decisions regarding the patients health care at this time. The patient continues to wish to leave against medical advice. In light of the patients decision to leave against medical advice, follow-up has been arranged and the patient is aware of the importance to following up as instructed. The patient has been advised that they should return to the emergency room immediately if they change their mind at any time, or if their condition begins to change or worsen in any way. 04/24/17 14:00 - Lab Interpretations Lab Results: 04/24/17 11:03 04/24/17 11:03 Lab Results 04/24/17 11:03: Sodium 144, Potassium 4.8, Chloride 104, Carbon Dioxide 27, Anion Gap 17, BUN 26 H, Creatinine 0.7, Est GFR ( Amer) > 60, Est GFR ( Non-Af Amer) > 60, Random Glucose 105, Calcium 9.6, Magnesium 2.1, Total Bilirubin 1.1, AST 30, ALT 21, Alkaline Phosphatase 80, Lactate Dehydrogenase 486, Total Creatine Kinase 62, Troponin I < 0.01, Total Protein 7.4, Albumin 4.2 , Globulin 3.2, Albumin/Globulin Ratio 1.3 04/24/17 11:03: PT 12.3, INR 1.07, APTT 38.6 H 04/24/17 11:03: WBC 6.9 D, RBC 4.54, Hgb 12.9, Hct 40.2, MCV 88.5, MCH 28.4, MCHC 32.1, RDW 13.6, Plt Count 251, MPV 11.4 H, Gran % 76.1 H, Lymph % (Auto) 16.3 L, [place] % (Auto) 6.9 H, Eos % (Auto) 0.6 L, Baso % (Auto) 0.1, Gran # 5.27 , Lymph # (Auto) 1.1 L, [place] # (Auto) 0.5, Eos # (Auto) 0.0, Baso # (Auto) 0.01 I have reviewed the lab results: Yes - EKG Interpretation Interpreted by ED Physician: Yes Type: 12 lead EKG - Medication Orders Current Medication Orders: Discontinued Medications Meclizine HCl (Antivert) 25 mg PO STAT STA Stop: 04/24/17 10:41 Last Admin: 04/24/17 10:58 Dose: 25 mg - Scribe Statement The provider has reviewed the documentation as recorded by the Zarina Vega Provider Scribe Attestation: All medical record entries made by the Armaniibe were at my direction and personally dictated by me. I have reviewed the chart and agree that the record accurately reflects my personal performance of the history, physical exam, medical decision making, and the department course for this patient. I have also personally directed, reviewed, and agree with the discharge instructions and disposition. Disposition/Present on Arrival - Present on Arrival Any Indicators Present on Arrival: No History of DVT/PE: No History of Uncontrolled Diabetes: No Urinary Catheter: No History of Decub. Ulcer: No History Surgical Site Infection Following: None - Disposition Have Diagnosis and Disposition been Completed?: Yes Diagnosis: Vertigo, Dizziness Disposition: AGAINST MEDICAL ADVICE Disposition Time: 12:23 Condition: STABLE Discharge Instructions (ExitCare): Vertigo (a Type of Dizziness), Dizziness, Nonvertigo, (DC), Leaving Against Medical Advice Prescriptions: Meclizine [Antivert] 25 mg PO Q6 PRN #30 tab PRN Reason: Dizziness Referrals: Cheng Lynch MD [Staff Provider] - Follow up with primary Ceasar Gonzalez MD [Primary Care Provider] - Follow up with primary Forms: [employer] (Sammarinese)
[2017-04-24 11:36] LABS: BASO # 0.01 K/mm3 (0.0-2.0); BASO % 0.1 % (0.0-3.0); EOS % 0.6 % (1.5-5.0); GRAN # 5.27 (1.4-6.5); GRAN % 76.1 % (50.0-68.0); HEMOGLOBIN 12.9 g/dL (12.0-16.0); LYMPH # 1.1 (1.2-3.4); LYMPH % 16.3 % (22.0-35.0); MEAN CELL VOLUME 88.5 fl (80.0-105.0); MEAN CORPUSCULAR HEMOGLOBIN 28.4 pg (25.0-35.0); MEAN CORPUSCULAR HGB CONC 32.1 g/dl (31.0-37.0); MEAN PLATELET VOLUME 11.4 fl (7.0-11.0); MONO # 0.5 (0.1-0.6); MONO % 6.9 % (1.0-6.0); RBC 4.54 10^6/uL (3.5-6.1); RED CELL DISTRIBUTION WIDTH 13.6 % (11.5-14.5); WHITE BLOOD COUNT 6.9 10^3/ul (4.5-11.0)
[2017-04-24 11:45] LABS: ALB/GLOB RATIO 1.3 (1.1-1.8); ALBUMIN 4.2 g/dL (3.0-4.8); ALT/SGPT 21 U/L (7-56); AST/SGOT 30 U/L (14-36); BLOOD UREA NITROGEN 26 mg/dL (7-21); CALCIUM 9.6 mg/dL (8.4-10.5); GFR AFRICAN-AMERICAN > 60; GFR NON-AFRICAN AMERICAN > 60; MAGNESIUM 2.1 mg/dL (1.7-2.2)
[2017-04-24 11:56] LABS: TROPONIN I < 0.01 ng/mL
[2017-04-24 12:02] LABS: INR 1.07 (0.93-1.08); PARTIAL THROMBOPLASTIN TIME 38.6 Seconds (25.1-36.5); PROTHROMBIN TIME 12.3 SECONDS (9.4-12.5)
[2017-04-24 12:09] VITALS: BP 136/70; PULSE 71; RESP 16; O2SAT 97
--- NOTE | 2017-04-25 02:37 | CARD ---
APPROVED REPORT EKG Measurement Heart [id number] <Conclusion> Poor data quality, interpretation may be adversely affected Normal sinus rhythm Cannot rule out Anteroseptal infarct, age undetermined Abnormal ECG
== END 2017-04-24 12:42 | disposition left against medical advice (07) ==
LOC: ED 10:16
DX: R42 Dizziness and giddiness (principal); I10 Essential (primary) hypertension; Z87.891 Personal history of nicotine dependence

== ENCOUNTER 2017-05-13 08:30 | Emergency (ER) | payer MEDICARE, MEDICAID ==
[2017-05-13 08:44] VITALS: RESP 18; TEMP 97.6; BMI 20.9
--- NOTE | 2017-05-13 09:03 | ED PDOC ---
Arrival/HPI - General Chief Complaint: Abdominal Pain Time Seen by Provider: 05/13/17 08:38 Historian: Patient - History of Present Illness Narrative History of Present Illness (Text): 05/13/17 08:58 Emerita Luna is an 82 year old female, whose past medical history includes hypertension and COPD, who presents to the emergency department complaining of abdominal pain since this morning. Patient notes pain occurred after eating. Patient states she experienced intermittent abdominal pain over the last couple days. Patient notes experiencing this pain in the past when she had gallstones. Patient denies any fever, chills, chest pain, shortness of breath, nausea, vomiting, diarrhea, urinary symptoms, back pain, neck pain, headache, dizziness , or any other complaints. Time/Duration: Other (this morning) Symptom Onset: Gradual Symptom Course: Unchanged Activities at Onset: Light Context: Home Past Medical History - Provider Review Nursing Documentation Reviewed: Yes - Infectious Disease Hx of Infectious Diseases: None - Tetanus Immunization Tetanus Immunization: Unknown - Reproductive Menopause: Yes - Cardiac Hx Hypertension: Yes - Pulmonary Hx Asthma: Yes Hx Bronchitis: Yes Hx Chronic Obstructive Pulmonary Disease (COPD): Yes - HEENT Other/Comment: TONSILLECTOMY - Musculoskeletal/Rheumatological Hx Falls: No Hx Unsteady Gait: Yes (CANE) - Gastrointestinal Hx Gastritis: Yes Hx Gastroesophageal Reflux: Yes - Psychiatric Hx Depression: No Hx Emotional Abuse: No Hx Physical Abuse: No Hx Substance Use: No - Surgical History Hx Appendectomy: Yes Hx Hysterectomy: Yes Hx Tonsillectomy: Yes - Anesthesia Hx Anesthesia Reactions: No Hx Malignant Hyperthermia: No - Suicidal Assessment Feels Threatened In Home Enviroment: No Family/Social History - Physician Review Nursing Documentation Reviewed: Yes Family/Social History: Unknown Family HX Smoking Status: Former Smoker Hx Alcohol Use: No Hx Substance Use: No Hx Substance Use Treatment: No Allergies/Home Meds Allergies/Adverse Reactions: Allergies No Known Allergies Allergy (Verified 05/13/17 08:45) Home Medications: Home Meds Medication Instructions Recorded Confirmed Isosorbide Mononitrate 30 mg PO DAILY 10/26/11 05/13/17 Metoprolol Tartrate [Lopressor] 25 mg PO DAILY 01/26/16 05/13/17 Simvastatin [Zocor] 20 mg PO DAILY 01/26/16 05/13/17 Albuterol Sulfate [Proair Hfa] 0.09 mg IH PRN PRN 05/20/16 04/24/17 Review of Systems - Review of Systems Constitutional: absent: Fatigue, Fevers ENT: absent: Hearing Changes Respiratory: absent: SOB Cardiovascular: absent: Chest Pain Gastrointestinal: Abdominal Pain, Appetite Changes. absent: Constipation, Diarrhea, Nausea, Vomiting, Hematochezia, Hematemesis, Food Intolerance Genitourinary Female: absent: Dysuria, Frequency Musculoskeletal: absent: Back Pain Skin: absent: Rash Neurological: absent: Headache, Dizziness, Focal Weakness Hemo/Lymphatic: absent: Easy Bleeding Psychiatric: absent: Depression Physical Exam - Physical Exam Narrative Physical Exam (Text): 05/13/17 09:04 Head: Atraumatic. Normocephalic. Eyes: PERRL. EOMI. Conjunctivae are not pale. ENT: Mucous membranes are moist and intact. Oropharynx is clear and symmetric. Neck: Supple. Full ROM. No JVD. No lymphadenopathy. Cardiovascular: Regular rate. Regular rhythm. No murmurs, rubs, or gallops. Distal pulses are 2+ and symmetric. Pulmonary/Chest: No evidence of respiratory distress. Clear to auscultation bilaterally. No wheezing, rales or rhonchi. Abdominal: Soft and non-distended. There is no tenderness. No rebound, guarding, or rigidity. No organomegaly. Good bowel sounds. Back: No CVA tenderness. No midline tenderness. Rectal: no gross bleeding Extremities: No edema. No cyanosis. No clubbing. Full range of motion in all extremities. No calf tenderness. Skin: Skin is warm and dry. No petechiae. No purpura. Neurological: Alert, awake, and oriented to person, place, time, and situation. Normal speech. Motor and sensory exam intact. Psychiatric: Good eye contact. Normal interaction, affect, and behavior. Vital Signs Reviewed: Yes Vital Signs Temp Pulse Resp BP Pulse Ox 05/13/17 10:11 64 18 135/66 96 05/13/17 08:44 97.6 F 82 18 156/84 H 99 Temperature: Afebrile Respiratory Rate: Normal Appearance: Positive for: Well-Appearing, Non-Toxic Pain Distress: None Mental Status: Positive for: Alert and Oriented X 3 Medical Decision Making ED Course and Treatment: 05/13/17 09:04 Impression: 82 year old female who presents to the emergency department complaining of abdominal pain since this morning. Differential Diagnosis included but are not limited to: Gastritis vs. Peptic Ulcer Disease vs. Gallstones vs. Cholitis Plan: -- -- Reassess and disposition Prior Visits: Notes and results from previous visits were reviewed. Patient was last seen in the emergency department on 04/24/27 for high blood pressure and dizziness. Pt left against medical advice. Progress Notes: Patient on re-examination with no pain. She denies pain with eating. She has tolerated po here. Symptoms are not exertional. She denies chest pain or sob. Ultrasound ordered for reported history of prior gallstones: 05/13/17 12:19 Chest X-ray reviewed, shows: LUNGS: No active pulmonary disease. PLEURA: No significant pleural effusion identified, no pneumothorax apparent. CARDIOVASCULAR: Normal. OSSEOUS STRUCTURES: No significant abnormalities. VISUALIZED UPPER ABDOMEN: Normal. OTHER FINDINGS: None. IMPRESSION: No active disease. No significant interval change compared to the prior examination(s). 05/13/17 12:34 US Abdomen reviewed, shows: LIVER: Measures 17.2 cm. Hepatopedal blood flow. Fatty infiltration manifest ultrasonographically as increased echogenicity of the liver parenchyma. No mass. No intrahepatic bile duct dilatation. GALLBLADDER: Sludge identified within the gallbladder. No evidence of cholelithiasis or other pathologic process. COMMON BILE DUCT: Measures 3.6 mm. No stones. No dilatation. PANCREAS: Unremarkable as visualized. No mass. No ductal dilatation. RIGHT KIDNEY: Measures 3.6 x 10.2cm. Normal echogenicity. No calculus, mass, or hydronephrosis. LEFT KIDNEY: Measures 3.9 x 9.9cm. Normal echogenicity. No calculus, mass, or hydronephrosis. SPLEEN: Normal in size and contour. No mass. AORTA: No aneurysmal dilatation. IVC: Unremarkable. OTHER FINDINGS: None. IMPRESSION: No acute findings related to/accounting for the clinical presentation. No significant interval change compared to the prior examination(s). Ultrasound reports reviewed with patient. As she is pain free with serial exams for past 5 hours, I have communicated with her PMD dr. Devi holguin and patient will be discharged with instructions to follow-up with PMD. I have advised continuing her PPI, and she is asymptomatic over past 5 hours in ED. No fever. No vomiting. She denies any urinary symptoms. - Lab Interpretations Lab Results: 05/13/17 09:45 05/13/17 09:45 Lab Results 05/13/17 10:16: Urine Color Yellow, Urine Appearance Clear, Urine pH 6.5, Ur Specific [place] 1.010, Urine Protein Negative, Urine Glucose (UA) Negative, Urine Ketones Negative, Urine Blood Small H, Urine Nitrate Negative, Urine Bilirubin Negative, Urine Urobilinogen 0.2, Ur Leukocyte Esterase Negative, Urine RBC 0 - 2, Urine WBC Negative, Ur Epithelial Cells 0 - 2, Urine Bacteria Few 05/13/17 09:45: Sodium 144, Potassium 4.0, Chloride 103, Carbon Dioxide 29, Anion Gap 15, BUN 25 H, Creatinine 0.8, Est GFR ( Amer) > 60, Est GFR ( Non-Af Amer) > 60, Random Glucose 128 H, Calcium 9.8, Total Bilirubin 0.8, AST 27, ALT 18, Alkaline Phosphatase 89, Lactate Dehydrogenase 413, Total Creatine Kinase 83, Troponin I < 0.01, Total Protein 7.3, Albumin 4.2, Globulin 3.1, Albumin/Globulin Ratio 1.4, Amylase 91, Lipase 92 05/13/17 09:45: PT 12.7 H, INR 1.10 H, APTT 30.6 05/13/17 09:45: WBC 9.5 D, RBC 4.57, Hgb 12.9, Hct 40.7, MCV 89.1, MCH 28.2, MCHC 31.7, RDW 13.5, Plt Count 289, MPV 11.7 H, Gran % 80.2 H, Lymph % (Auto) 13.3 L, [place] % (Auto) 6.3 H, Eos % (Auto) 0.1 L, Baso % (Auto) 0.1, Gran # 7.58 H, Lymph # (Auto) 1.3, [place] # (Auto) 0.6, Eos # (Auto) 0.0, Baso # (Auto) 0.01 - RAD Interpretation Radiology Orders: 05/13/17 09:06 CHEST PORTABLE [RAD] Stat ABDOMEN COMPLETE [US] Stat - Medication Orders Current Medication Orders: Discontinued Medications Famotidine (Pepcid) 20 mg IVP STAT STA Stop: 05/13/17 13:04 Last Admin: 05/13/17 13:15 Dose: 20 mg IVP Administration Document 05/13/17 13:15 SRE (Rec: 05/13/17 13:15 SRE [id number]) Charges for Administration # of IVP Administrations 1 Sodium Chloride (Sodium Chloride 0.9%) 500 mls @ 1,000 mls/hr IV .Q30M STA Stop: 05/13/17 13:32 Last Admin: 05/13/17 13:14 Dose: 1,000 mls/hr eMAR Start Stop Document 05/13/17 13:14 SRE (Rec: 05/13/17 13:15 SRE [id number]) Intravenous Solution Start Date 05/13/17 Start Time 13:15 End Date 05/13/17 End time 13:45 Total Infusion Time 30 - Scribe Statement The provider has reviewed the documentation as recorded by the Scribe Documented by Dacia Azevedo acting as a scribe for Arturo Welsh MD. Disposition/Present on Arrival - Present on Arrival Any Indicators Present on Arrival: No History of DVT/PE: No History of Uncontrolled Diabetes: No Urinary Catheter: No History of Decub. Ulcer: No History Surgical Site Infection Following: None - Disposition Have Diagnosis and Disposition been Completed?: Yes Diagnosis: Gastritis, Abdominal pain Disposition: HOME/ ROUTINE Disposition Time: 14:04 Patient Plan: Discharge Condition: GOOD Discharge Instructions (ExitCare): Gastritis, Acute Abdomen (Belly Pain) Additional Instructions: Continue your current medication. For any fevers, any chest pain or shortness of breath, any vomiting or diarrhea, any return of abdominal pain, any urinary symptoms, get rechecked. Follow-up with your physician in 1-2 days. Forms: [employer] (Kiswahili)
[2017-05-13 10:01] LABS: ALB/GLOB RATIO 1.4 (1.1-1.8); ALBUMIN 4.2 g/dL (3.0-4.8); ALT/SGPT 18 U/L (7-56); AMYLASE 91 U/L (35-125); AST/SGOT 27 U/L (14-36); BLOOD UREA NITROGEN 25 mg/dL (7-21); CALCIUM 9.8 mg/dL (8.4-10.5); GFR AFRICAN-AMERICAN > 60; GFR NON-AFRICAN AMERICAN > 60; LIPASE 92 U/L (23-300)
[2017-05-13 10:02] LABS: BASO # 0.01 K/mm3 (0.0-2.0); BASO % 0.1 % (0.0-3.0); EOS % 0.1 % (1.5-5.0); GRAN # 7.58 (1.4-6.5); GRAN % 80.2 % (50.0-68.0); HEMOGLOBIN 12.9 g/dL (12.0-16.0); LYMPH # 1.3 (1.2-3.4); LYMPH % 13.3 % (22.0-35.0); MEAN CELL VOLUME 89.1 fl (80.0-105.0); MEAN CORPUSCULAR HEMOGLOBIN 28.2 pg (25.0-35.0); MEAN CORPUSCULAR HGB CONC 31.7 g/dl (31.0-37.0); MEAN PLATELET VOLUME 11.7 fl (7.0-11.0); MONO # 0.6 (0.1-0.6); MONO % 6.3 % (1.0-6.0); RBC 4.57 10^6/uL (3.5-6.1); RED CELL DISTRIBUTION WIDTH 13.5 % (11.5-14.5); WHITE BLOOD COUNT 9.5 10^3/ul (4.5-11.0)
[2017-05-13 10:05] LABS: INR 1.1 (0.93-1.08); PARTIAL THROMBOPLASTIN TIME 30.6 Seconds (25.1-36.5); PROTHROMBIN TIME 12.7 SECONDS (9.4-12.5)
[2017-05-13 10:12] LABS: TROPONIN I < 0.01 ng/mL
[2017-05-13 10:26] LABS: PH,URINE 6.5 (4.7-8.0); URINE APPEARANCE CLEAR (CLEAR); URINE BILIRUBIN NEGATIVE (NEGATIVE); URINE BLOOD SMALL (NEGATIVE); URINE COLOR YELLOW (YELLOW); URINE GLUCOSE (UA) NEGATIVE (NEGATIVE); URINE LEUKOCYTE ESTERASE NEGATIVE Leu/uL (NEGATIVE); URINE PROTEIN NEGATIVE mg/dL (<30 mg/dL); URINE UROBILINOGEN 0.2 E.U./dL (<1 E.U./dL)
[2017-05-13 10:34] VITALS: O2SAT 96
[2017-05-13 10:35] LABS: URINE RBC 0 - 2 /hpf (0-2); URINE WBC NEGATIVE /hpf (0-6)
[2017-05-13 10:36] LABS: URINE BACTERIA FEW (NEG); URINE EPITHELIAL CELLS 0 - 2 /hpf (0-5)
--- NOTE | 2017-05-13 12:14 | RAD ---
HISTORY: upper abdominal pain COMPARISON: 11/17/2016 FINDINGS: LUNGS: No active pulmonary disease. PLEURA: No significant pleural effusion identified, no pneumothorax apparent. CARDIOVASCULAR: Normal. OSSEOUS STRUCTURES: No significant abnormalities. VISUALIZED UPPER ABDOMEN: Normal. OTHER FINDINGS: None. IMPRESSION: No active disease. No significant interval change compared to the prior examination(s).
--- NOTE | 2017-05-13 12:32 | US ---
HISTORY: Upper abdominal pain COMPARISON: None. TECHNIQUE: Sonographic evaluation of the abdomen. FINDINGS: LIVER: Measures 17.2 cm. Hepatopedal blood flow. Fatty infiltration manifest ultrasonographically as increased echogenicity of the liver parenchyma. No mass. No intrahepatic bile duct dilatation. GALLBLADDER: Sludge identified within the gallbladder. No evidence of cholelithiasis or other pathologic process. COMMON BILE DUCT: Measures 3.6 mm. No stones. No dilatation. PANCREAS: Unremarkable as visualized. No mass. No ductal dilatation. RIGHT KIDNEY: Measures 3.6 x 10.2cm. Normal echogenicity. No calculus, mass, or hydronephrosis. LEFT KIDNEY: Measures 3.9 x 9.9cm. Normal echogenicity. No calculus, mass, or hydronephrosis. SPLEEN: Normal in size and contour. No mass. AORTA: No aneurysmal dilatation. IVC: Unremarkable. OTHER FINDINGS: None. IMPRESSION: No acute findings related to/accounting for the clinical presentation. No significant interval change compared to the prior examination(s).
[2017-05-13] MEDS ORDERED: Sodium Chloride 0.9% 500 ML IV STA (13:03)
[2017-05-13 14:25] VITALS: BP 120/56; PULSE 70
--- NOTE | 2017-05-13 23:03 | CARD ---
APPROVED REPORT EKG Measurement Heart [id number] <Conclusion> Normal sinus rhythm Normal ECG
== END 2017-05-13 14:25 | disposition home or self-care (01) ==
LOC: ED 08:30
DX: K29.70 Gastritis, unspecified, without bleeding (principal)
CPT/HCPCS: 96374; 99284; J7040

== ENCOUNTER 2017-05-13 16:00 | Inpatient (IN) | payer MEDICARE, MEDICAID ==
[2017-05-13 16:01] VITALS: BMI 20.9
--- NOTE | 2017-05-13 16:18 | ED PDOC ---
Arrival/HPI - General Chief Complaint: Dizziness/Lightheaded Time Seen by Provider: 05/13/17 16:04 Historian: Patient - History of Present Illness Narrative History of Present Illness (Text): 05/13/17 16:15 Patient is an 82 yo female who presents to Emergency Department complaining of sudden onset of dizziness and sensation that she may pass out. Patient was recently seen in ED for abdominal pain. She denied any symptoms prior to discharge earlier this afternoon. She states she took a cab home, felt fine. She went to the bathroom an states she had a sudden onset of sensation that she may pass out. States that she had no chest pain or abdominal pain or palpitations. Symptoms now improved in the ED. Time/Duration: Prior to Arrival Symptom Onset: Sudden Past Medical History - Infectious Disease Hx of Infectious Diseases: None - Tetanus Immunization Tetanus Immunization: Unknown - Reproductive Menopause: Yes - Cardiac Hx Hypertension: Yes - Pulmonary Hx Asthma: Yes Hx Bronchitis: Yes Hx Chronic Obstructive Pulmonary Disease (COPD): Yes - HEENT Other/Comment: TONSILLECTOMY - Musculoskeletal/Rheumatological Hx Falls: No Hx Unsteady Gait: Yes (CANE) - Gastrointestinal Hx Gastritis: Yes Hx Gastroesophageal Reflux: Yes - Psychiatric Hx Substance Use: No - Surgical History Hx Appendectomy: Yes Hx Hysterectomy: Yes Hx Tonsillectomy: Yes - Anesthesia Hx Anesthesia Reactions: No Hx Malignant Hyperthermia: No - Suicidal Assessment Feels Threatened In Home Enviroment: No Family/Social History Family/Social History: CAD/[place] Smoking Status: Former Smoker Hx Alcohol Use: No Hx Substance Use: No Hx Substance Use Treatment: No Allergies/Home Meds Allergies/Adverse Reactions: Allergies No Known Allergies Allergy (Verified 05/13/17 08:45) Home Medications: Home Meds Medication Instructions Recorded Confirmed Isosorbide Mononitrate 30 mg PO DAILY 10/26/11 05/13/17 Metoprolol Tartrate [Lopressor] 25 mg PO DAILY 01/26/16 05/13/17 Simvastatin [Zocor] 20 mg PO DAILY 01/26/16 05/13/17 Albuterol Sulfate [Proair Hfa] 0.09 mg IH PRN PRN 05/20/16 05/13/17 Review of Systems - Review of Systems Constitutional: absent: Fatigue, Fevers Eyes: absent: Vision Changes ENT: absent: Hearing Changes Respiratory: absent: SOB, Cough Cardiovascular: absent: Chest Pain, Palpitations Gastrointestinal: absent: Abdominal Pain, Nausea, Vomiting Genitourinary Female: absent: Dysuria, Frequency Musculoskeletal: absent: Back Pain Skin: absent: Rash Neurological: Dizziness. absent: Focal Weakness Hemo/Lymphatic: absent: Easy Bleeding Physical Exam Vital Signs Reviewed: Yes Vital Signs Temp Pulse Resp BP Pulse Ox 05/13/17 20:33 68 17 168/83 H 96 05/13/17 20:20 68 18 176/91 H 95 05/13/17 19:09 91 H 187/100 H 05/13/17 18:12 76 18 168/70 H 96 05/13/17 16:01 98 F 78 18 175/94 H 95 Temperature: Afebrile Appearance: Positive for: Non-Toxic Pain Distress: None Mental Status: Positive for: Alert and Oriented X 3 - Systems Exam Head: Present: Atraumatic Pupils: Present: PERRL Extroacular Muscles: Present: EOMI Mouth: Present: Moist Mucous Membranes Pharnyx: No: ERYTHEMA Nose (Internal): Present: Normal Inspection Neck: Present: Normal Range of Motion. No: Meningeal Signs Respiratory/Chest: Present: Clear to Auscultation. No: Respiratory Distress Cardiovascular: Present: Regular Rate and Rhythm, Murmurs Abdomen: No: Tenderness, Distention Back: No: CVA Tenderness Upper Extremity: No: Cyanosis Lower Extremity: No: Edema, CALF TENDERNESS Neurological: Present: Motor Func Grossly Intact, Normal Sensory Function Skin: Present: Warm Psychiatric: Present: Alert, Normal Insight, Normal Concentration Medical Decision Making ED Course and Treatment: 05/13/17 19:03 Patient states that she experience dizziness described as feeling as if she may pass out when she left ED. Denies any chest pain, denies any shortness of breath or nausea or diaphoresis. Her neuro intact is unremarkable. No focal weakness on serial exams. Patient EKG is normal sinus rhythm rate of [address] elevations. She states dizziness has resolved while lying in stretcher. Plan to obtain head ct, admit for remote telemetry observation as she has prior significant cardiac history. She continues to deny any headache or chest pain or sob on re-exam. Initial card isos unremarkable. Patient ordered her BP meds. She denies headache. Case d/w PMD Dr. Devi Gonzalez, will consult instrument repair specialist given history of near syncop, will admit to remote telemetry bed. 05/13/17 19:[address] scan. Risks reviewed with patient. She has no neuro deficits at this time. - Lab Interpretations Lab Results: 05/13/17 16:45 05/13/17 16:45 Lab Results 05/13/17 16:50: POC Glucose (mg/dL) 107 05/13/17 16:45: Sodium 144, Potassium 4.1, Chloride 107, Carbon Dioxide 27, Anion Gap 15, BUN 24 H, Creatinine 0.9, Est GFR ( Amer) > 60, Est GFR ( Non-Af Amer) > 60, Random Glucose 116 H, Calcium 9.4, Total Bilirubin 0.8, AST 28, ALT 26, Alkaline Phosphatase 74, Lactate Dehydrogenase 435, Total Creatine Kinase 68, Troponin I < 0.01, Total Protein 6.9, Albumin 3.9, Globulin 2.9, Albumin/Globulin Ratio 1.4 05/13/17 16:45: WBC 8.4, RBC 4.37, Hgb 12.4, Hct 38.9, MCV 89.0, MCH 28.4, MCHC 31.9, RDW 13.5, Plt Count 263, MPV 11.4 H, Gran % 72.2 H, Lymph % (Auto) 18.1 L , [place] % (Auto) 9.1 H, Eos % (Auto) 0.5 L, Baso % (Auto) 0.1, Gran # 6.08, Lymph # (Auto) 1.5, [place] # (Auto) 0.8 H, Eos # (Auto) 0.0, Baso # (Auto) 0.01 - Medication Orders Current Medication Orders: Al Hydrox/Mg Hydrox/Simethicone (Maalox Plus 30 Ml) 30 ml PO Q3H PRN PRN Reason: Constipation Last Admin: 05/14/17 20:14 Dose: 30 ml Albuterol/Ipratropium (Duoneb 3 Mg/0.5 Mg (3 Ml) Ud) 3 ml IH BID [facility] Last Admin: 05/15/17 10:08 Dose: Not Given Non-Admin Reason: Patient in Cardiology Aspirin (Ecotrin) 81 mg PO DAILY [facility] Last Admin: 05/15/17 11:14 Dose: 81 mg Atorvastatin Calcium (Lipitor) 20 mg PO DIN [facility] Last Admin: 05/14/17 18:40 Dose: 20 mg Isosorbide Mononitrate (Imdur Er) 30 mg PO DAILY [facility] Last Admin: 05/15/17 11:14 Dose: 30 mg Metoprolol Tartrate (Lopressor) 25 mg PO DAILY [facility] Last Admin: 05/15/17 11:17 Dose: 25 mg MAR Pulse and Blood Pressure Document 05/15/17 11:17 J (Rec: 05/15/17 11:18 J [id number]) Pulse Pulse Rate (60-90) 88 Blood Pressure Blood Pressure (100/60-150/90) 133/80 Pantoprazole Sodium (Protonix Ec Tab) 40 mg PO 0600 [facility] Last Admin: 05/15/17 05:08 Dose: 40 mg Discontinued Medications Aspirin (Aspirin Chewable) 81 mg PO STAT STA Stop: 05/13/17 19:11 Last Admin: 05/13/17 19:44 Dose: 81 mg Metoprolol Tartrate (Lopressor) 25 mg PO STAT STA Stop: 05/13/17 18:49 Last Admin: 05/13/17 19:09 Dose: 25 mg MAR Pulse and Blood Pressure Document 05/13/17 19:09 SRE (Rec: 05/13/17 19:11 SRE [id number]) Pulse Pulse Rate (60-90) 91 Blood Pressure Blood Pressure (100/60-150/90) 187/100 Disposition/Present on Arrival - Present on Arrival Any Indicators Present on Arrival: No History of DVT/PE: No History of Uncontrolled Diabetes: No Urinary Catheter: No History of Decub. Ulcer: No History Surgical Site Infection Following: None - Disposition Have Diagnosis and Disposition been Completed?: Yes Diagnosis: Near syncope Disposition: HOSPITALIZED Disposition Time: 18:48 Patient Plan: Admission, Telemetry Patient Problems: Current Active Problems Problem Status Onset Near syncope Acute Condition: FAIR
[2017-05-13 17:16] LABS: TROPONIN I < 0.01 ng/mL
[2017-05-13 17:22] LABS: ALB/GLOB RATIO 1.4 (1.1-1.8); ALBUMIN 3.9 g/dL (3.0-4.8); ALT/SGPT 26 U/L (7-56); AST/SGOT 28 U/L (14-36); BLOOD UREA NITROGEN 24 mg/dL (7-21); CALCIUM 9.4 mg/dL (8.4-10.5); GFR AFRICAN-AMERICAN > 60; GFR NON-AFRICAN AMERICAN > 60
[2017-05-13 17:23] LABS: BASO # 0.01 K/mm3 (0.0-2.0); BASO % 0.1 % (0.0-3.0); EOS % 0.5 % (1.5-5.0); GRAN # 6.08 (1.4-6.5); GRAN % 72.2 % (50.0-68.0); HEMOGLOBIN 12.4 g/dL (12.0-16.0); LYMPH # 1.5 (1.2-3.4); LYMPH % 18.1 % (22.0-35.0); MEAN CORPUSCULAR HEMOGLOBIN 28.4 pg (25.0-35.0); MEAN CORPUSCULAR HGB CONC 31.9 g/dl (31.0-37.0); MEAN PLATELET VOLUME 11.4 fl (7.0-11.0); MONO # 0.8 (0.1-0.6); MONO % 9.1 % (1.0-6.0); RBC 4.37 10^6/uL (3.5-6.1); RED CELL DISTRIBUTION WIDTH 13.5 % (11.5-14.5); WHITE BLOOD COUNT 8.4 10^3/ul (4.5-11.0)
[2017-05-14] MEDS: Albuterol-Ipratrop 3 mg / 0.5 (3 ml) UD IH SCH ×2 (10:07→19:51)
[2017-05-14] MEDS ORDERED: Alum-Mag Hydrox-Simethicone Susp (30 mL) PO PRN (19:56)
--- NOTE | 2017-05-14 22:13 | CON ---
DATE: 05/14/2017 LOCATION: The patient in room 371, bed 2. REASON FOR CONSULTATION: Dizziness, near syncope, history of hypertension. HISTORY OF PRESENT ILLNESS: The patient is an 82-year-old female, who came to emergency room, was feeling dizzy and history of dizziness was like vertigo. The patient states that room was spinning around and almost to the extent that she felt like that she is going to fall down, but she held on to the wall and she did not fall down. The patient denies any chest pain, shortness of breath, palpitation. The patient states that she has history of hypertension. She also gets anxiety attacks. She walks with a cane because she states she has unsteady walk. The patient was supposed to go for a CAT scan, but the patient states that she is claustrophobic. She does not want to do the CAT scan. The patient is sitting in chair without any chest pain, shortness of breath, palpitation. She states her dizziness is better. PAST MEDICAL HISTORY: Positive for hypertension and anxiety. She also was told to have bronchitis and chronic obstructive pulmonary disease, gastroesophageal reflux. PAST SURGICAL HISTORY: The patient has appendectomy, hysterectomy and tonsillectomy. FAMILY HISTORY: Positive for CAD. ALLERGIES: THE PATIENT DENIES ANY ALLERGIES. MEDICATIONS: List of medications at home, the patient was on isosorbide mononitrate 30 daily, metoprolol tartrate 25 daily, Zocor 20 mg daily, albuterol sulfate. REVIEW OF SYSTEMS: All the systems are reviewed. Positive mentioned in the history, otherwise negative. PERSONAL HISTORY: Stopped smoking 1 pack a day about 20 years ago. Denies drinking. PHYSICAL EXAMINATION: VITAL SIGNS: Blood pressure 132/84, respiration 18, pulse 64, temperature 97.6. HEENT: Head is normocephalic. Eyes, pupils are normal. Conjunctivae are normal. Nose and throat are normal. NECK: JVP low. Carotids are equal. THORAX: AP diameter normal. LUNGS: Clear. CARDIOVASCULAR: S1 and S2. ABDOMEN: Soft, no tenderness. No organomegaly. EXTREMITIES: No clubbing. No cyanosis. LABORATORY DATA: WBC 8.4, hemoglobin 12.4, hematocrit 38.9, platelets 263. Sodium 144, potassium 4.1, BUN 24, creatinine 0.9, random glucose 107. AST and ALT normal. Sodium 144, potassium 4.1, BUN 24, creatinine 0.9. Random sugar 116. Troponin negative. Total protein normal. Chest x-ray, no active pulmonary disease. EKG showed regular sinus rhythm. Abdominal ultrasound showed no acute finding. DIAGNOSES: Vertigo, history of hypertension, unsteady walk, walks with a cane, anxiety. PLAN: We will do the echocardiogram. The patient is claustrophobic and she does not want to do IV Lexiscan stress test and the patient is on aspirin 81 mg daily, isosorbide mononitrate 30 daily, Lipitor 20 daily, metoprolol 25 daily, Protonix 40 daily and we will order an echocardiogram and we will continue to follow with you. The patient is on telemetry to rule out any arrhythmia. Tolu Rosado MD
--- NOTE | 2017-05-14 22:29 | CARD ---
APPROVED REPORT EKG Measurement Heart [id number] <Conclusion> Normal sinus rhythm Cannot rule out Anteroseptal infarct, age undetermined Abnormal ECG
[2017-05-15] MEDS ORDERED: Pantoprazole 40 mg EC Tab PO SCH (06:00)
[2017-05-15 06:44] LABS: HDL CHOLESTEROL 32 mg/dL (29-60)
[2017-05-15 06:55] LABS: LDL CHOLESTEROL 59 mg/dL (0-129)
--- NOTE | 2017-05-15 09:11 | CON ---
DATE: 05/14/2017 This patient was seen and evaluated earlier today. REASON FOR CONSULTATION: Abdominal pain. HISTORY OF PRESENT ILLNESS: This 82-year-old patient with a past medical history of coronary artery disease, COPD, history of intestinal obstruction in the past presented to the Emergency Room with dizziness, nausea and near syncopal episode. The patient also was complaining of some abdominal discomfort, felt better, she went home, came back again. She had again the sensation of passing out, came back to the Emergency Room. The patient did have an ultrasound scan of the abdomen, which was negative. PAST MEDICAL HISTORY: Other history positive as above. Other medical history include coronary artery disease, dyslipidemia, hypertension and GERD. ALLERGIES: NO KNOWN DRUG ALLERGIES. SOCIAL HISTORY: Ex-smoker. Denies alcohol use. REVIEW OF SYSTEMS: Positive as above. PHYSICAL EXAMINATION GENERAL: Patient is lying on the bed, not in acute distress. VITAL SIGNS: Temperature is 97.7, blood pressure 133/71, pulse 63, respirations 20. HEENT: Atraumatic, anicteric. NECK: Supple. HEART: S1 and S2 heard. LUNGS: Bilateral air entry present. ABDOMEN: Soft. No obvious tenderness. EXTREMITIES: No edema. No cyanosis. NEUROLOGICAL: Alert, oriented, moves all the extremities. LABORATORY DATA: Hemoglobin 12.4, hematocrit 38.9, WBC is 8.4, platelets 263,000. Chemistry is essentially unremarkable. IMPRESSION: This is an 82-year-old patient admitted with a near-syncopal episode complaints of also some abdominal pain, history of some weight loss, the etiology for the abdominal pain is unclear. The patient would benefit from the CT scan. RECOMMENDATIONS: I would recommend: 1. Cardiac followup with cardiologic evaluation. The patient would benefit from the CT scan of the abdomen and pelvis with a p.o. contrast. we are going to further evaluate. Advised followup in our office. Patient is on clear liquid diet. The patient was very anxious and reluctant about the CAT scan. I did explain to her at length and also, she will receive a dose of Xanax 0.125 mg before the CAT scan for anxiety. Thank you very much for allowing us to participate in the care of this patient. Eri Turk MD [facility] # [id number] MTDAshwini
--- NOTE | 2017-05-15 09:25 | HP ---
HISTORY OF PRESENT ILLNESS: The patient is an 82-year-old female who presents to the Emergency Room complaining of a sudden onset of dizziness, confusion and feeling of near-syncope. The patient spent earlier on the day of admission in the Emergency Room complaining of abdominal pain. As the patient was feeling better, she was discharged to home. Apparently, at home, she had a sudden onset of confusion and disorientation. She did not recognize a friend who came to her apartment to visit her; therefore, hospitalization was suggested by the friends, lani was called and the patient returned to the Emergency Room, was reevaluated and admitted. PAST MEDICAL HISTORY: She is known to have a past medical history positive for hypertension, COPD, gastroesophageal reflux disease. PAST SURGICAL HISTORY: She is status post hysterectomy, status post appendectomy, status post tonsillectomy. She usually ambulates at home with a cane. SOCIAL HISTORY: She is a former smoker and a non-alcoholic drinker. ALLERGIES: NO KNOWN MEDICAL ALLERGIES. MEDICATIONS AT THE TIME OF ADMISSION: Included isosorbide 30 mg daily, metoprolol tartrate 25 mg daily, and ProAir HFA inhalations 4 times a day as needed. REVIEW OF SYSTEMS: Otherwise, negative. PHYSICAL EXAMINATION GENERAL: When seen, the patient is awake, alert, and oriented. She is much more calmed down from what she is now describing as a panic attack she had on admission. VITAL SIGNS: Her blood pressure is 175/94, heart rate is 78, and she is afebrile at 98 degrees Fahrenheit. Pulse oximetry is measured at 95. HEAD, EYES, EARS, NOSE AND THROAT: Unremarkable. NECK: Supple. No lymphadenopathy. No goiter. LUNGS: Clear to auscultation and percussion. HEART: Regular with no murmurs appreciated. ABDOMEN: Soft and nontender with no organomegaly. EXTREMITIES: Free of cyanosis, clubbing, or edema. NEUROLOGIC: There are no focal neurological signs. LABORATORY DATA: Laboratory studies show an EKG showing regular sinus rhythm with no acute ST-segment elevations. White blood cell count is 8.4. Hemoglobin and hematocrit are 12.4 and 38.9 respectively. Platelet count is 263,000. Sodium is 144, potassium 4.1, blood urea nitrogen 24, creatinine 0.9. Nonfasting glucose is 116. Troponins are less than 0.01. CAT scan of the head without contrast was performed. IMPRESSION AND PLAN: The patient's consultation from Dr. Rosado, the licensed and certified midwife and Dr. Turk, the control engineer were called. The patient said that she spoke to the licensed and certified midwife, he is scheduling an echocardiogram for the morning; however, as it stands now, the patient is refusing a stress test. Her albuterol, aspirin, and isosorbide have been continued. The patient was started on atorvastatin 20 mg as well as Protonix for her gastrointestinal symptoms. The patient will be reevaluated in the morning. The case to be discussed with Dr. Rosado as well as Dr. Turk. The patient will be followed closely. Layton Gonzalez MD
[2017-05-15] MEDS: Albuterol-Ipratrop 3 mg / 0.5 (3 ml) UD IH SCH (10:08)
--- NOTE | 2017-05-15 11:27 | CARD ---
APPROVED REPORT EXAM: Two-dimensional and M-mode echocardiogram with Doppler and color Doppler. INDICATION VERTIGO/HYPERTENSION 2D DIMENSIONS Left Atrium (2D)2.9 (1.6-4.0cm)IVSd1.1 (0.7-1.1cm) LVDd3.5 (3.9-5.9cm)PWd1.1 (0.7-1.1cm) LVDs2.6 (2.5-4.0cm)FS (%) 24.1 % LVEF (%)49.0 (>50%) M-Mode DIMENSIONS Aortic Root2.40 (2.2-3.7cm)Aortic Cusp Exc.1.50 (1.5-2.0cm) Aortic Valve AoV Peak Kufcekzf975.0cm/Carroll Peak GR.11mmHg Mitral Valve MV E Cuhiatvv07.1cm/sMV A Zyheqdoa71.9cm/sE/A ratio0.8 TDI E/Lateral E'0.0E/Medial E'0.0 Tricuspid Valve TR Peak Lrkinytd672fz/sRAP BTXPBTCH98laFuKW Peak Gr.35mmHg HMKQ84pmYr LEFT VENTRICLE The left ventricle is normal size. There is borderline concentric left ventricular hypertrophy. The systolic function is mildly impaired.EF-45-50% There is mild hypokinesis in the basal inferior wall. Transmitral Doppler flow pattern is Grade III-reversible restrictive diastolic dysfunction. No left ventricle thrombus noted on this study. There is no ventricular septal defect visualized. There is no left ventricular aneurysm. There is no mass noted in the left ventricle. RIGHT VENTRICLE The right ventricle is borderline dilated. There is normal right ventricular wall thickness. Systolic function is borderline reduced. ATRIA The left atrium size is normal. The right atrium size is normal. The interatrial septum is intact with no evidence for an atrial septal defect. The atrial septum is aneurysmal. AORTIC VALVE The aortic valve is thickened but opens well. No aortic regurgitation is present. Aortic sclerosis Vs Mild There is no aortic valvular vegetation. MITRAL VALVE The mitral valve is thickened but opens well. Mitral regurgitation is mild to moderate. There is no mitral valve stenosis. There is no evidence of mitral valve prolapse. TRICUSPID VALVE The tricuspid valve leaflets are thickened , but open well. There is mild to moderate tricuspid regurgitation.RVSP-45 mmof hg. There is mild tricuspid regurgitation. There is no tricuspid valve stenosis. There is no tricuspid valve prolapse or vegetation. PULMONIC VALVE The pulmonic valve is borderlineborderline thickened. There is trace pulmonic valvular regurgitation. There is no pulmonic valvular stenosis. GREAT VESSELS The aortic root is normal in size. The ascending aorta is normal in size. The pulmonary artery is normal. The IVC is normal in size and collapses >50% with inspiration. PERICARDIAL EFFUSION There is no pleural effusion. There is no pericardial effusion. Anterior Pericardial pad of Fat noted <Conclusion> The left ventricle is normal size. There is borderline concentric left ventricular hypertrophy. The systolic function is mildly impaired.EF-45-50% Mitral regurgitation is mild to moderate. There is mild to moderate tricuspid regurgitation.RVSP-45 mmof hg. There is mild tricuspid regurgitation. The IVC is normal in size and collapses >50% with inspiration. There is no pericardial effusion. Anterior Pericardial pad of Fat noted Aortic sclerosis Vs Mild No aortic regurgitation is present.
[2017-05-15] MEDS ORDERED: Barium Sulfate Susp 2.1% w/v, 2.0% w/w 450 mL Bottle PO ONE (13:22)
--- NOTE | 2017-05-15 13:48 | PN ---
DATE: 05/15/2017 LOCATION: The patient in room 371, bed 2. REASON FOR CONSULTATION AND FOLLOWUP: Dizziness, near syncope, history of hypertension. SUBJECTIVE: The patient denies any cardiac symptom like chest pain, shortness of breath, and she does not have any palpitation or any chest pain. OBJECTIVE: VITAL SIGNS: Blood pressure 118/67, respirations 18, pulse 72, and temperature 97.8. HEENT: Head is normocephalic. Eyes: Pupils are normal. Conjunctivae normal. Nose and throat normal. NECK: JVP low. Carotids are equal. THORAX: AP diameter normal. LUNGS: Clear. CARDIOVASCULAR: S1, S2. ABDOMEN: Soft, nontender. No organomegaly. Bowel sounds normal. EXTREMITIES: No clubbing, no cyanosis. LABORATORY DATA: Triglycerides 78, cholesterol 108, HDL 32, LDL 59. TSH 1.87. The other labs those were done on 05/13/2017, they were reported on the yesterday's consult. DIAGNOSES: Vertigo, history of hypertension, unsteady walk, walks with a cane, history of anxiety. PLAN: The patient refuses stress test. She says she is claustrophobic. She also refuses CAT scan. The patient, however, agrees for echo which would be done today. We will continue aspirin 81 mg daily, isosorbide mononitrate 30 daily, Lipitor 20 daily, metoprolol 25 daily, Protonix 40 daily. We will follow up with you. Tolu Rosado MD
[2017-05-15 17:54] VITALS: BP 119/74; PULSE 76; RESP 19; TEMP 97.9; O2SAT 97
--- NOTE | 2017-05-16 11:50 | PN ---
DATE: 05/15/2017 SUBJECTIVE: The patient was seen this Sunday, mid-day in room 371, bed 2. She no longer feels faint, weak or dizzy. Her GI symptoms have subsided quite a bit. She has been followed by Cardiology. Echocardiogram was done. Case was discussed with Dr. Quijano. From a GI perspective, her nausea and upset stomach have improved clinically. She feels well, tolerating a diet of regular food without difficulty. As mentioned above, echocardiogram was done. The patient is refusing CT scan. I offered her the option of going home. She would rather wait until tomorrow. To be certain, she is feeling better, tolerating her diet. I explained the importance of CT scan and GI workup. She feels she has had enough. Even I explained that the CT scans that were done, were of her head and other body parts and no CT of the abdomen had been done in several years, but she still refuses. Later in the day, I received a call from the case management in view of her receiving continued treatment and workup. She will need to be discharged to home and followed as an outpatient. They we will be meeting with the patient and discussing her options. Ceasar Gonzalez MD MTDAshwini
== END 2017-05-15 18:19 | disposition home or self-care (01) | DRG 149 ==
LOC: ED 16:00 → ERH 18:49 → 3RSO 21:45 → OBSVTOIN 05-14 16:31
PROVIDERS: ADMIT Internal Medicine; ATTEND Internal Medicine
DX: R42 Dizziness and giddiness (principal); J44.9 Chronic obstructive pulmonary disease, unspecified; E78.5 Hyperlipidemia, unspecified; F40.240 Claustrophobia; F41.1 Generalized anxiety disorder; I10 Essential (primary) hypertension; I25.10 Atherosclerotic heart disease of native coronary artery without angina pectoris; K21.9 Gastro-esophageal reflux disease without esophagitis; R26.81 Unsteadiness on feet; Z87.891 Personal history of nicotine dependence; Z90.49 Acquired absence of other specified parts of digestive tract; Z90.710 Acquired absence of both cervix and uterus; Z79.82 Long term (current) use of aspirin

== ENCOUNTER 2018-01-07 20:18 | Emergency (ER) | payer MEDICARE, MEDICAID ==
[2018-01-07 20:33] VITALS: BMI 19.3
[2018-01-07 20:37] VITALS: RESP 18; TEMP 98.6
--- NOTE | 2018-01-07 20:57 | ED PDOC ---
Arrival/HPI - General Chief Complaint: Abdominal Pain Time Seen by Provider: 01/07/18 20:35 Historian: Patient - History of Present Illness Narrative History of Present Illness (Text): 01/07/18 20:56 Emerita Goins is an 82 year old female, whose past medical history includes gastritis, hypertension, COPD, and GERD, who presents to the Emergency department complaining of abdominal pain. Patient reports fleeting upper abdominal discomfort after eating for the past few days. Patient states she has been taking Protonix as prescribed by her PMD, without significant relief. Patient reports 1 episode of vomiting and diarrhea. Patient denies any fever, chills, chest pain, shortness of breath, urinary symptoms, back pain, neck pain, headache, dizziness, or any other complaints. Symptom Onset: Gradual Symptom Course: Unchanged Activities at Onset: Light Context: Home Past Medical History - Provider Review Nursing Documentation Reviewed: Yes - Infectious Disease Hx of Infectious Diseases: None - Tetanus Immunization Tetanus Immunization: Unknown - Cardiac Hx Hypertension: Yes - Pulmonary Hx Chronic Obstructive Pulmonary Disease (COPD): Yes - HEENT Other/Comment: TONSILLECTOMY - Musculoskeletal/Rheumatological Hx Falls: No Hx Unsteady Gait: Yes (CANE) - Gastrointestinal Hx Gastritis: Yes Hx Gastroesophageal Reflux: Yes - Psychiatric Hx Anxiety: Yes Hx Substance Use: No - Surgical History Hx Appendectomy: Yes Hx Hysterectomy: Yes Hx Tonsillectomy: Yes - Anesthesia Hx Anesthesia Reactions: No Hx Malignant Hyperthermia: No - Suicidal Assessment Feels Threatened In Home Enviroment: No Family/Social History - Physician Review Nursing Documentation Reviewed: Yes Family/Social History: Unknown Family HX Smoking Status: Former Smoker Hx Alcohol Use: No Hx Substance Use: No Hx Substance Use Treatment: No Allergies/Home Meds Allergies/Adverse Reactions: Allergies No Known Allergies Allergy (Verified 01/07/18 20:32) Home Medications: Home Meds Medication Instructions Recorded Confirmed Isosorbide Mononitrate 30 mg PO DAILY 10/26/11 01/07/18 Metoprolol Tartrate [Lopressor] 25 mg PO DAILY 01/26/16 01/07/18 Simvastatin [Zocor] 20 mg PO DAILY 01/26/16 01/07/18 Albuterol Sulfate [Proair Hfa] 0.09 mg IH PRN PRN 05/20/16 01/07/18 Review of Systems - Physician Review All systems were reviewed & negative as marked: Yes - Review of Systems Constitutional: Normal. absent: Fevers Eyes: Normal ENT: Normal Respiratory: Normal. absent: SOB, Cough Cardiovascular: Normal. absent: Chest Pain Gastrointestinal: Abdominal Pain, Diarrhea, Vomiting Genitourinary Female: Normal. absent: Dysuria, Frequency, Hematuria, Urine Output Changes Musculoskeletal: Normal. absent: Back Pain, Neck Pain Skin: Normal. absent: Rash Neurological: Normal. absent: Headache, Dizziness Endocrine: Normal Hemo/Lymphatic: Normal Psychiatric: Normal Physical Exam Vital Signs Reviewed: Yes Vital Signs Temp Pulse Resp BP Pulse Ox 01/07/18 20:36 98.6 F 95 H 18 169/97 H 99 Temperature: Afebrile Blood Pressure: Hypertensive Pulse: Regular Respiratory Rate: Normal Appearance: Positive for: Well-Appearing, Non-Toxic, Comfortable Pain Distress: None Mental Status: Positive for: Alert and Oriented X 3 - Systems Exam Head: Present: Atraumatic, Normocephalic Pupils: Present: PERRL Extroacular Muscles: Present: EOMI Conjunctiva: Present: Normal Mouth: Present: Moist Mucous Membranes Neck: Present: Normal Range of Motion Respiratory/Chest: Present: Clear to Auscultation, Good Air Exchange. No: Respiratory Distress, Accessory Muscle Use Cardiovascular: Present: Regular Rate and Rhythm, Normal S1, S2. No: Murmurs Abdomen: No: Tenderness, Distention, Peritoneal Signs Back: Present: Normal Inspection Upper Extremity: Present: Normal Inspection. No: Cyanosis, Edema Lower Extremity: Present: Normal Inspection. No: Edema Neurological: Present: GCS=15, CN II-XII Intact, Speech Normal Skin: Present: Warm, Dry, Normal Color. No: Rashes Psychiatric: Present: Alert, Oriented x 3, Normal Insight, Normal Concentration Medical Decision Making ED Course and Treatment: 01/07/18 20:56 Impression: 82 year old female complaining of abdominal discomfort, vomiting x1, and diarrhea. Plan: -- EKG -- Chest X-ray -- Labs, lipase -- IV fluids -- Pepcid -- Reassess and disposition Prior Visits: Notes and results from previous visits were reviewed. Progress Notes: 01/07/18 23:26 Reviewed EKG, NSR at 86 bpm. Anteroseptal infarct. 01/07/18 23:40 Chest X-ray reviewed, shows no acute processes. 01/08/18 01:18 On re-evaluation, patient feels better and is in no acute distress. I have discussed the results and plan with the patient, who expresses understanding. Patient in agreement with plan to be discharged home. Patient is stable for discharge. Patient was instructed to follow up with physician or return if symptoms worsen or new concerning symptoms arise. - Lab Interpretations I have reviewed the lab results: Yes - RAD Interpretation Physicist [place]: ED Physician - EKG Interpretation Interpreted by ED Physician: Yes Type: 12 lead EKG - Scribe Statement The provider has reviewed the documentation as recorded by the Armaniibe Farida Barnett Provider Scribe Attestation: All medical record entries made by the Scribe were at my direction and personally dictated by me. I have reviewed the chart and agree that the record accurately reflects my personal performance of the history, physical exam, medical decision making, and the department course for this patient. I have also personally directed, reviewed, and agree with the discharge instructions and disposition. Disposition/Present on Arrival - Present on Arrival Any Indicators Present on Arrival: No History of DVT/PE: No History of Uncontrolled Diabetes: No Urinary Catheter: No History of Decub. Ulcer: No History Surgical Site Infection Following: None - Disposition Have Diagnosis and Disposition been Completed?: Yes Diagnosis: Gastritis Disposition: HOME/ ROUTINE Disposition Time: 01:18 Patient Plan: Discharge Patient Problems: Current Active Problems Problem Status Onset Gastritis Acute Condition: GOOD Discharge Instructions (ExitCare): Gastritis (DC) Additional Instructions: Take meds as prescribed/follow up with your doctor this week Prescriptions: Famotidine [Pepcid] 20 mg PO BID PRN #24 tab PRN Reason: Dyspepsia Referrals: Ceasar Gonzalez MD [Primary Care Provider] - Follow up with primary Forms: [facility] (Maltese)
[2018-01-07] MEDS ORDERED: Sodium Chloride 0.9% 1,000 ML IV SCH (21:00)
[2018-01-07 21:13] LABS: HEMOGLOBIN 12.3 g/dL (12.0-16.0); MEAN CELL VOLUME 89.6 fl (80.0-105.0); MEAN CORPUSCULAR HEMOGLOBIN 28.5 pg (25.0-35.0); MEAN CORPUSCULAR HGB CONC 31.9 g/dl (31.0-37.0); RBC 4.31 10^6/uL (3.5-6.1); RED CELL DISTRIBUTION WIDTH 14.6 % (11.5-14.5); WHITE BLOOD COUNT 8.1 10^3/uL (4.5-11.0)
[2018-01-07 21:29] LABS: ALB/GLOB RATIO 1.3 (1.1-1.8); ALT/SGPT 19 U/L (7-56); AST/SGOT 31 U/L (14-36); BLOOD UREA NITROGEN 19 mg/dL (7-21); CALCIUM 8.9 mg/dL (8.4-10.5); GFR NON-AFRICAN AMERICAN > 60; LIPASE 166 U/L (23-300)
[2018-01-08 01:34] VITALS: BP 156/76; PULSE 88; O2SAT 100
--- NOTE | 2018-01-08 08:36 | RAD ---
Date of service: 01/07/2018 HISTORY: abdominal pain COMPARISON: 05/13/2017 FINDINGS: LUNGS: No active pulmonary disease. PLEURA: No significant pleural effusion identified, no pneumothorax apparent. CARDIOVASCULAR: No aortic atherosclerotic calcification present. Normal cardiac size. No pulmonary vascular congestion. OSSEOUS STRUCTURES: No significant abnormalities. VISUALIZED UPPER ABDOMEN: Normal. OTHER FINDINGS: None. IMPRESSION: No active disease.
--- NOTE | 2018-01-08 12:28 | CARD ---
APPROVED REPORT Date of service: 01/07/2018 EKG Measurement Heart [id number] <Conclusion> Normal sinus rhythm Anteroseptal infarct, age undetermined Abnormal ECG
== END 2018-01-08 01:32 | disposition home or self-care (01) ==
LOC: ED 20:18
DX: K29.70 Gastritis, unspecified, without bleeding (principal); I10 Essential (primary) hypertension; J44.9 Chronic obstructive pulmonary disease, unspecified; Z87.891 Personal history of nicotine dependence
CPT/HCPCS: 71045; 80053; 83690; 85027; 93005; 96374; 99283; J7030

== ENCOUNTER 2018-01-08 18:18 | Observation (INO) | payer MEDICARE, MEDICAID ==
--- NOTE | 2018-01-08 18:43 | ED PDOC ---
Arrival/HPI - General Time Seen by Provider: 01/08/18 18:25 Historian: Patient - History of Present Illness Narrative History of Present Illness (Text): 01/08/18 18:42 82 year old female, whose past medical history includes gastritis, hypertension, COPD, and GERD, who presents to the Emergency department complaining of abdominal pain. She was seen in the emergency department yesterday 01/07/18, she had normal labs and was discharged home pain free after pepcid. Patient reports persistent abdominal pain, prompting her visit to the emergency department. She notes that she has vomited multiple times today, and is constipated with no bowel movement today, but is passing flatus. She reports significant diarrhea yesterday but reports she is worried due to constipation today. She denies fevers, chills, headache, dizziness, chest pain, shortness of breath, dyspnea on exertion, cough, abdominal pain, back pain, neck pain, or any other complaint. 01/08/18 20:30 Time/Duration: < week Symptom Course: Unchanged Activities at Onset: Light Context: Home Past Medical History - Provider Review Nursing Documentation Reviewed: Yes - Infectious Disease Hx of Infectious Diseases: None - Tetanus Immunization Tetanus Immunization: Unknown - Cardiac Hx Hypertension: Yes - Pulmonary Hx Chronic Obstructive Pulmonary Disease (COPD): Yes - HEENT Other/Comment: TONSILLECTOMY - Musculoskeletal/Rheumatological Hx Falls: No Hx Unsteady Gait: Yes (CANE) - Gastrointestinal Hx Gastritis: Yes Hx Gastroesophageal Reflux: Yes - Psychiatric Hx Anxiety: Yes Hx Substance Use: No - Surgical History Hx Appendectomy: Yes Hx Hysterectomy: Yes Hx Tonsillectomy: Yes - Anesthesia Hx Anesthesia Reactions: No Hx Malignant Hyperthermia: No - Suicidal Assessment Feels Threatened In Home Enviroment: No Family/Social History - Physician Review Nursing Documentation Reviewed: Yes Family/Social History: Unknown Family HX Smoking Status: Former Smoker Hx Alcohol Use: No Hx Substance Use: No Hx Substance Use Treatment: No Allergies/Home Meds Allergies/Adverse Reactions: Allergies No Known Allergies Allergy (Verified 01/08/18 18:36) Home Medications: Home Meds Medication Instructions Recorded Confirmed Isosorbide Mononitrate 30 mg PO DAILY 10/26/11 01/07/18 Metoprolol Tartrate [Lopressor] 25 mg PO DAILY 01/26/16 01/07/18 Simvastatin [Zocor] 20 mg PO DAILY 01/26/16 01/07/18 Albuterol Sulfate [Proair Hfa] 0.09 mg IH PRN PRN 05/20/16 01/07/18 Review of Systems - Review of Systems Constitutional: absent: Fevers Eyes: absent: Vision Changes Respiratory: absent: SOB, Cough Cardiovascular: absent: Chest Pain Gastrointestinal: Abdominal Pain (epigastric region), Constipation, Vomiting. absent: Diarrhea Genitourinary Female: absent: Dysuria, Hematuria Musculoskeletal: absent: Back Pain, Neck Pain Skin: absent: Rash Neurological: absent: Headache, Dizziness Endocrine: absent: Diaphoresis Psychiatric: absent: Anxiety Physical Exam Vital Signs Reviewed: Yes Temperature: Afebrile Blood Pressure: Hypertensive Pulse: Regular Respiratory Rate: Normal Appearance: Positive for: Well-Appearing, Non-Toxic, Comfortable Pain Distress: None Mental Status: Positive for: Alert and Oriented X 3 - Systems Exam Head: Present: Atraumatic, Normocephalic Pupils: Present: PERRL Extroacular Muscles: Present: EOMI Conjunctiva: Present: Normal Mouth: Present: Moist Mucous Membranes Neck: Present: Normal Range of Motion Respiratory/Chest: Present: Clear to Auscultation, Good Air Exchange. No: Respiratory Distress, Accessory Muscle Use Cardiovascular: Present: Regular Rate and Rhythm, Normal S1, S2. No: Murmurs Abdomen: Present: Tenderness (epigastric tenderness). No: Distention, Peritoneal Signs Back: Present: Normal Inspection Upper Extremity: Present: Normal Inspection. No: Cyanosis, Edema Lower Extremity: Present: Normal Inspection. No: Edema Neurological: Present: GCS=15, CN II-XII Intact, Speech Normal Skin: Present: Warm, Dry, Normal Color. No: Rashes Psychiatric: Present: Alert, Oriented x 3, Normal Insight, Normal Concentration Medical Decision Making ED Course and Treatment: 01/08/18 18:42 Impression: 82 year old female who presents to the emergency department with epigastric abdominal pain. She is refusing CT. Patient care public utilities sales representative Sagar went to speak with her and she is still refusing. I spoke to her PMD and she is still refusing. Plan: -- EKG -- Labs -- Maalox -- Pepcid -- X-ray of abdomen 2 views (Flat/up or Decub) -- Reassess and disposition Prior Visits: Notes and results from previous visits were reviewed. Patient was last seen in the emergency department on 01/07/2018. Progress Notes: 01/08/18 18:53 01/08/18 19:12 EKG reviewed, shows: NSR at [address] changes. Unchanged from previous EKG on 03/19/2017. 01/08/18 20:03 Pain resolved after pepcid so this may simply be gastritis. KUB shows non- obstructive bowel gas pattern but will need to follow-up official read. Gave mg citrate as patient continues to report constipation. I am still concerned that I have not fully ruled out SBO or other intrabdominal pathology. Patient has surgical history and this is second visit for same complaint. She continues to refuse CT. Will need serial abdominal exams. - Lab Interpretations I have reviewed the lab results: Yes - RAD Interpretation Manager Winter: Radiologist - EKG Interpretation Interpreted by ED Physician: Yes Type: 12 lead EKG - Scribe Statement The provider has reviewed the documentation as recorded by the Armaniibfarzana Jesus Provider Scribe Attestation: All medical record entries made by the Scribe were at my direction and perso mitra dictated by me. I have reviewed the chart and agree that the record accurately reflects my personal performance of the history, physical exam, medical decision making, and the department course for this patient. I have also personally directed, reviewed, and agree with the discharge instructions and disposition. Disposition/Present on Arrival - Present on Arrival Any Indicators Present on Arrival: No History of DVT/PE: No History of Uncontrolled Diabetes: No Urinary Catheter: No History Surgical Site Infection Following: None - Disposition Have Diagnosis and Disposition been Completed?: Yes Diagnosis: Gastritis Disposition: HOSPITALIZED Disposition Time: 18:53 Patient Plan: Observation Patient Problems: Current Active Problems Problem Status Onset Gastritis Acute Condition: FAIR Referrals: Ceasar Gonzalez MD [Primary Care Provider] - Follow up with primary
[2018-01-08] MEDS ORDERED: Alum-Mag Hydrox-Simethicone Susp (30 mL) PO STA (18:50)
[2018-01-08 19:39] LABS: BASO # 0.02 K/mm3 (0.0-2.0); BASO % 0.2 % (0.0-3.0); EOS # 0.1 (0.0-0.7); EOS % 1.2 % (1.5-5.0); GRAN # 5.99 (1.4-6.5); GRAN % 74.7 % (50.0-68.0); HEMOGLOBIN 11.8 g/dL (12.0-16.0); LYMPH # 1.2 (1.2-3.4); LYMPH % 15.3 % (22.0-35.0); MEAN CELL VOLUME 89.2 fl (80.0-105.0); MEAN CORPUSCULAR HEMOGLOBIN 28.4 pg (25.0-35.0); MEAN CORPUSCULAR HGB CONC 31.8 g/dl (31.0-37.0); MEAN PLATELET VOLUME 11.2 fl (7.0-11.0); MONO # 0.7 (0.1-0.6); MONO % 8.6 % (1.0-6.0); RBC 4.16 10^6/uL (3.5-6.1); RED CELL DISTRIBUTION WIDTH 14.6 % (11.5-14.5)
--- NOTE | 2018-01-08 19:44 | CARD ---
APPROVED REPORT Date of service: 01/08/2018 EKG Measurement Heart [id number] <Conclusion> Poor data quality, interpretation may be adversely affected Normal sinus rhythm Anteroseptal infarct, age undetermined Abnormal ECG
[2018-01-08 19:45] LABS: ALB/GLOB RATIO 1.3 (1.1-1.8); ALT/SGPT 24 U/L (7-56); AST/SGOT 35 U/L (14-36); BLOOD UREA NITROGEN 18 mg/dL (7-21); CALCIUM 8.4 mg/dL (8.4-10.5); GFR NON-AFRICAN AMERICAN > 60; LIPASE 103 U/L (23-300)
[2018-01-08] MEDS ORDERED: Magnesium Citrate Oral SOL (300 ml) PO ONE (19:59)
[2018-01-08] MEDS ORDERED: Magnesium Hydroxide Susp 30 ml UD PO STA (20:06)
[2018-01-09 03:00] VITALS: RESP 20; BMI 19.1
[2018-01-09] MEDS ORDERED: Albuterol 0.083% Inhal Sol (2.5 mg/3 mL) UD IH PRN (07:09)
[2018-01-09 07:15] VITALS: TEMP 97.8; O2SAT 99
[2018-01-09] MEDS ORDERED: Pantoprazole 40 mg EC Tab PO SCH (07:30)
--- NOTE | 2018-01-09 09:05 | RAD ---
Date of service: 01/08/2018 HISTORY: abdominal pain COMPARISON: None available. FINDINGS: BOWEL: Normal. No obstruction. No free air. BONES: Normal. OTHER FINDINGS: None. IMPRESSION: No active disease.
[2018-01-09 09:38] VITALS: BP 150/80; PULSE 76
== END 2018-01-09 12:48 | disposition home or self-care (01) ==
LOC: ED 18:18 → ERH 20:02 → 3RSO 22:58
PROVIDERS: ADMIT Internal Medicine; ATTEND Internal Medicine
DX: K29.00 Acute gastritis without bleeding (principal); K21.9 Gastro-esophageal reflux disease without esophagitis; J44.9 Chronic obstructive pulmonary disease, unspecified; I10 Essential (primary) hypertension; K59.00 Constipation, unspecified; Z53.20 Procedure and treatment not carried out because of patient's decision for unspecified reasons; Z90.49 Acquired absence of other specified parts of digestive tract; Z90.710 Acquired absence of both cervix and uterus; R40.2412 Glasgow coma scale score 13-15, at arrival to emergency department
CPT/HCPCS: 74019; 80053; 83690; 83735; 84100; 85025; 93005; 96374; 99285; G0378

== ENCOUNTER 2018-05-27 07:46 | Emergency (ER) | payer MEDICARE, MEDICAID ==
[2018-05-27 07:47] VITALS: BMI 19.1
[2018-05-27] MEDS ORDERED: Sodium Chloride 0.9% 1,000 ML IV SCH (08:30)
--- NOTE | 2018-05-27 08:30 | ED PDOC ---
Arrival/HPI - General Chief Complaint: Abdominal Pain Time Seen by Provider: 05/27/18 07:50 Historian: Patient - History of Present Illness Narrative History of Present Illness (Text): 05/27/18 07:50 Emerita Das is an 83 year old female, with a past medical history of gastritis, angina, hypertension, COPD, and GERD, who presents to the emergency department complaining of crampy periumbillical pain since this morning. Patient also informs of diarrhea mixed with normal stool. Patient informs taking protonix for gastritis and a suppository with no improvement. Patient presents to ER after calling Dr. Gonzalez who told her to visit emergency department for her complaints. Patient's complaints have currently resolved in the ED. Patient denies any fevers, chills, headache, dizziness, chest pain, shortness of breath, dyspnea on exertion, cough, diaphoresis, nausea, vomiting, back pain, neck pain, or any other complaint. Time/Duration: 1-3 hours Symptom Onset: Gradual Symptom Course: Resolved Quality: Cramping Activities at Onset: Light Context: Home Past Medical History - Provider Review Nursing Documentation Reviewed: Yes - Infectious Disease Hx of Infectious Diseases: None - Tetanus Immunization Tetanus Immunization: Unknown - Reproductive Menopause: No - Cardiac Hx Cardiac Disorders: Yes Hx Angina: Yes Hx Hypertension: Yes - Pulmonary Hx Respiratory Disorders: Yes Hx Chronic Obstructive Pulmonary Disease (COPD): Yes Hx Pneumonia: No - Neurological Hx Neurological Disorder: No - HEENT Hx HEENT Disorder: Yes Other/Comment: TONSILLECTOMY - Renal Hx Renal Disorder: No - Endocrine/Metabolic Hx Endocrine Disorders: No - Hematological/Oncological Hx Blood Disorders: Yes Hx Shingles: Yes - Integumentary Hx Dermatological Disorder: No - Musculoskeletal/Rheumatological Hx Falls: No - Gastrointestinal Hx Gastrointestinal Disorders: Yes Hx Gastroesophageal Reflux: Yes Other/Comment: gastritis - Genitourinary/Gynecological Hx Genitourinary Disorders: No - Psychiatric Hx Psychophysiologic Disorder: Yes Hx Anxiety: Yes Hx Substance Use: No - Surgical History Hx Appendectomy: Yes Hx Hysterectomy: Yes Other/Comment: colon sx - Anesthesia Hx Anesthesia Reactions: No Hx Malignant Hyperthermia: No - Suicidal Assessment Feels Threatened In Home Enviroment: No Family/Social History - Physician Review Nursing Documentation Reviewed: Yes Family/Social History: No Known Family HX Smoking Status: Former Smoker Hx Alcohol Use: No Hx Substance Use: No Hx Substance Use Treatment: No Allergies/Home Meds Allergies/Adverse Reactions: Allergies No Known Allergies Allergy (Verified 01/08/18 18:36) Home Medications: Home Meds Medication Instructions Recorded Confirmed Isosorbide Mononitrate 30 mg PO DAILY 10/26/11 01/09/18 Metoprolol Tartrate [Lopressor] 25 mg PO DAILY 01/26/16 01/09/18 Simvastatin [Zocor] 20 mg PO DAILY 01/26/16 01/09/18 Albuterol Sulfate [Proair Hfa] 0.09 mg IH PRN PRN 05/20/16 01/09/18 Famotidine [Pepcid] 20 mg PO BID 01/09/18 01/09/18 Review of Systems - Physician Review All systems were reviewed & negative as marked: Yes - Review of Systems Constitutional: absent: Fevers, Other (chills) Respiratory: absent: SOB, Cough Cardiovascular: absent: Chest Pain Gastrointestinal: Abdominal Pain (periumbillical pain), Diarrhea. absent: Nausea, Vomiting Musculoskeletal: absent: Back Pain, Neck Pain Neurological: absent: Headache, Dizziness Physical Exam Vital Signs Reviewed: Yes Vital Signs Temp Pulse Resp BP Pulse Ox 05/27/18 07:55 97.9 F 82 18 182/83 H 18 L Temperature: Afebrile Blood Pressure: Hypertensive Pulse: Regular Respiratory Rate: Normal Appearance: Positive for: Well-Appearing, Non-Toxic, Comfortable Pain Distress: None Mental Status: Positive for: Alert and Oriented X 3 - Systems Exam Head: Present: Atraumatic, Normocephalic Pupils: Present: PERRL Extroacular Muscles: Present: EOMI Conjunctiva: Present: Normal Mouth: Present: Moist Mucous Membranes Neck: Present: Normal Range of Motion Respiratory/Chest: Present: Clear to Auscultation, Good Air Exchange. No: R espiratory Distress, Accessory Muscle Use Cardiovascular: Present: Regular Rate and Rhythm, Normal S1, S2. No: Murmurs Abdomen: No: Tenderness, Distention, Peritoneal Signs Back: Present: Normal Inspection Upper Extremity: Present: Normal Inspection. No: Cyanosis, Edema Lower Extremity: Present: Normal Inspection. No: Edema Neurological: Present: GCS=15, CN II-XII Intact, Speech Normal Skin: Present: Warm, Dry, Normal Color. No: Rashes Psychiatric: Present: Alert, Oriented x 3, Normal Insight, Normal Concentration Medical Decision Making ED Course and Treatment: 05/27/18 07:50 Impression: Patient is an 83 year old female who presents to the emergency department complaining of crampy periumbillical pain since this morning. Patient notes diarrhea mixed with normal stool. Patient's complaint and symptoms have currently resolved in the emergency department. Plan: -- EKG -- Pepcid -- IV Fluids -- Zofran Inj -- Urinalysis -- Labs -- Reassess and disposition Prior Visits: Notes and results from previous visits were reviewed. Progress Notes: 05/27/18 09:08 Patient is asymptomatic at this time. Discussed case with Dr. Gonzalez, who ad vises patient for outpatient follow-up later in the week. Patient is aware and agrees with plan. Patient will be discharged. - EKG Interpretation EKG Interpretation (Text): 05/27/18 09:10 Reviewed EKG, shows: NSR at 75 BPM. Normal axis and intervals. Interpreted by ED Physician: Yes Type: 12 lead EKG - Medication Orders Current Medication Orders: Sodium Chloride (Sodium Chloride 0.9%) 1,000 mls @ 100 mls/hr IV .Q10H BRITTNEY Discontinued Medications Famotidine (Pepcid) 20 mg IVP STAT STA Stop: 05/27/18 08:22 Ondansetron HCl (Zofran Inj) 4 mg IVP STAT STA Stop: 05/27/18 08:22 - Scribe Statement The provider has reviewed the documentation as recorded by the Scribfarzana Limon All medical record entries made by the Armaniibfarzana were at my direction and personally dictated by me. I have reviewed the chart and agree that the record accurately reflects my personal performance of the history, physical exam, medical decision making, and the department course for this patient. I have also personally directed, reviewed, and agree with the discharge instructions and disposition. Disposition/Present on Arrival - Present on Arrival Any Indicators Present on Arrival: No History of DVT/PE: No History of Uncontrolled Diabetes: No Urinary Catheter: No History of Decub. Ulcer: No History Surgical Site Infection Following: None - Disposition Have Diagnosis and Disposition been Completed?: Yes Diagnosis: Gastritis Disposition: HOME/ ROUTINE Disposition Time: 20:50 Condition: GOOD Discharge Instructions (ExitCare): [place] Diet, Gastritis (DC) Additional Instructions: EMERITA DAS, thank you for letting us take care of you today. Your provider was Jacob Yip DO and you were treated for ABD PAIN. The emergency medical care you received today was directed at your acute symptoms. If you were prescribed any medication, please fill it and take as directed. It may take several days for your symptoms to resolve. Return to the Emergency Department if your symptoms worsen, do not improve, or if you have any other problems. Please contact your doctor or call one of the physicians/clinics you have been referred to that are listed on the Patient Visit Information form that is included in your discharge packet. Bring any paperwork you were given at discharge with you along with any medications you are taking to your follow up visit. Our treatment cannot replace ongoing medical care by a primary care pro vider outside of the emergency department. Thank you for allowing the [facility] team to be part of your care today. Follow up with Dr. Gonzalez at the end of this week for re-evaluation and further management. Return to the emergency room if you have any concerns. Referrals: Ceasar Gonzalez MD [Primary Care Provider] - Follow up with primary Forms: [employer] (Tajik)
[2018-05-27 08:42] LABS: ALB/GLOB RATIO 1.3 (1.1-1.8); ALBUMIN 4.2 g/dL (3.0-4.8); AST/SGOT 25 U/L (14-36); BLOOD UREA NITROGEN 19 mg/dL (7-21); CALCIUM 9.1 mg/dL (8.4-10.5); GFR NON-AFRICAN AMERICAN > 60; LIPASE 83 U/L (23-300)
[2018-05-27 08:43] LABS: ALT/SGPT < 6 U/L (7-56); BASO # 0.02 K/mm3 (0.0-2.0); BASO % 0.2 % (0.0-3.0); EOS % 0.5 % (1.5-5.0); HEMOGLOBIN 12.7 g/dL (12.0-16.0); LYMPH # 0.6 (1.2-3.4); LYMPH % 7.2 % (22.0-35.0); MEAN CELL VOLUME 89.1 fl (80.0-105.0); MEAN CORPUSCULAR HEMOGLOBIN 28.2 pg (25.0-35.0); MEAN CORPUSCULAR HGB CONC 31.7 g/dl (31.0-37.0); MEAN PLATELET VOLUME 10.9 fl (7.0-11.0); MONO # 0.4 (0.1-0.6); MONO % 4.5 % (1.0-6.0); RBC 4.5 10^6/uL (3.5-6.1); RED CELL DISTRIBUTION WIDTH 13.8 % (11.5-14.5); WHITE BLOOD COUNT 8.1 10^3/uL (4.5-11.0)
--- NOTE | 2018-05-27 09:39 | CARD ---
APPROVED REPORT Date of service: 05/27/2018 EKG Measurement Heart [id number] ID [id number] <Conclusion> Normal sinus rhythm Normal ECG
[2018-05-27 10:23] VITALS: O2SAT 99
[2018-05-27 12:05] VITALS: BP 159/87; PULSE 80; RESP 18; TEMP 98.2
== END 2018-05-27 10:30 | disposition home or self-care (01) ==
LOC: ED 07:46
DX: K29.70 Gastritis, unspecified, without bleeding (principal); I10 Essential (primary) hypertension; J44.9 Chronic obstructive pulmonary disease, unspecified; Z87.891 Personal history of nicotine dependence
CPT/HCPCS: 80053; 83690; 83735; 85025; 93005; 96361; 96374; 96375; 99283; J2405; J7030

== ENCOUNTER 2018-06-09 03:45 | Emergency (ER) | payer MEDICARE, MEDICAID ==
[2018-06-09 03:48] VITALS: BMI 21.9
[2018-06-09 04:06] VITALS: RESP 18; TEMP 97.7
[2018-06-09] MEDS ORDERED: Sodium Chloride 0.9% 1,000 ML IV SCH (04:15)
--- NOTE | 2018-06-09 04:16 | ED PDOC ---
Arrival/HPI - General Chief Complaint: Abdominal Pain Time Seen by Provider: 06/09/18 04:08 Historian: Patient - History of Present Illness Narrative History of Present Illness (Text): 06/09/18 04:12 An 83 year old female, whose past medical history includes gastritis, angina, Hypertension, COPD, and GERD, presents to the ED with a complaint of abdominal cramping, vomiting, and diarrhea earlier today. The patient states that she ate a hamburger earlier today, which she was instructed not to eat after her previous visit to the hospital. Patient reports that after eating the burger, her symptoms began. In the ED, manuelito reports that her symptoms have improved. She denies fevers, chills, headache, dizziness, chest pain, shortness of breath, dyspnea on exertion, cough, back pain, neck pain, urinary/bowel changes, or any other complaint. Time/Duration: Other (Yesterday) Symptom Onset: Sudden Symptom Course: Unchanged Activities at Onset: Rest, Light Context: Home Past Medical History - Provider Review Nursing Documentation Reviewed: Yes - Infectious Disease Hx of Infectious Diseases: None - Tetanus Immunization Tetanus Immunization: Unknown - Cardiac Hx Cardiac Disorders: Yes Hx Angina: Yes Hx Hypertension: Yes - Pulmonary Hx Respiratory Disorders: Yes Hx Chronic Obstructive Pulmonary Disease (COPD): Yes Hx Pneumonia: No - Neurological Hx Neurological Disorder: No - HEENT Hx HEENT Disorder: Yes Other/Comment: TONSILLECTOMY - Renal Hx Renal Disorder: No - Endocrine/Metabolic Hx Endocrine Disorders: No - Hematological/Oncological Hx Blood Disorders: Yes Hx Shingles: Yes - Integumentary Hx Dermatological Disorder: No - Musculoskeletal/Rheumatological Hx Falls: No - Gastrointestinal Hx Gastrointestinal Disorders: Yes Hx Gastroesophageal Reflux: Yes Other/Comment: gastritis - Genitourinary/Gynecological Hx Genitourinary Disorders: No - Psychiatric Hx Psychophysiologic Disorder: Yes Hx Anxiety: Yes Hx Substance Use: No - Surgical History Hx Appendectomy: Yes Hx Hysterectomy: Yes Other/Comment: colon sx - Anesthesia Hx Anesthesia: Yes Hx Anesthesia Reactions: No Hx Malignant Hyperthermia: No - Suicidal Assessment Feels Threatened In Home Enviroment: No Family/Social History - Physician Review Nursing Documentation Reviewed: Yes Family/Social History: No Known Family HX Smoking Status: Former Smoker Hx Alcohol Use: No Hx Substance Use: No Hx Substance Use Treatment: No Allergies/Home Meds Allergies/Adverse Reactions: Allergies No Known Allergies Allergy (Verified 06/09/18 03:50) Home Medications: Home Meds Medication Instructions Recorded Confirmed Isosorbide Mononitrate 30 mg PO DAILY 10/26/11 01/09/18 Metoprolol Tartrate [Lopressor] 25 mg PO DAILY 01/26/16 01/09/18 Simvastatin [Zocor] 20 mg PO DAILY 01/26/16 01/09/18 Albuterol Sulfate [Proair Hfa] 0.09 mg IH PRN PRN 05/20/16 01/09/18 Famotidine [Pepcid] 20 mg PO BID 01/09/18 01/09/18 Review of Systems - Physician Review All systems were reviewed & negative as marked: Yes - Review of Systems Constitutional: absent: Fevers Respiratory: absent: SOB, Cough Cardiovascular: absent: Chest Pain, MORA Gastrointestinal: Abdominal Pain, Diarrhea, Vomiting. absent: Stool Changes Genitourinary Female: absent: Urine Output Changes Musculoskeletal: absent: Back Pain, Neck Pain Neurological: absent: Headache, Dizziness Physical Exam Vital Signs Reviewed: Yes Vital Signs Temp Pulse Resp BP Pulse Ox 06/09/18 04:05 97.7 F 96 H 18 199/99 H 99 06/09/18 03:47 94 H 17 199/99 H 99 Temperature: Afebrile Blood Pressure: Hypertensive Pulse: Tachycardic Respiratory Rate: Normal Appearance: Positive for: Well-Appearing, Non-Toxic, Comfortable Pain Distress: None Mental Status: Positive for: Alert and Oriented X 3 - Systems Exam Head: Present: Atraumatic, Normocephalic Pupils: Present: PERRL Extroacular Muscles: Present: EOMI Conjunctiva: Present: Normal Mouth: Present: Moist Mucous Membranes Neck: Present: Normal Range of Motion Respiratory/Chest: Present: Clear to Auscultation, Good Air Exchange. No: Respiratory Distress, Accessory Muscle Use Cardiovascular: Present: Regular Rate and Rhythm, Normal S1, S2. No: Murmurs Abdomen: Present: Tenderness (upper abdomen). No: Distention, Peritoneal Signs Back: Present: Normal Inspection Upper Extremity: Present: Normal Inspection. No: Cyanosis, Edema Lower Extremity: Present: Normal Inspection. No: Edema Neurological: Present: GCS=15, CN II-XII Intact, Speech Normal Skin: Present: Warm, Dry, Normal Color. No: Rashes Psychiatric: Present: Alert, Oriented x 3, Normal Insight, Normal Concentration Medical Decision Making ED Course and Treatment: 06/09/18 04:16 Impression: An 83 year old female presents to the ed with a complaint of abdominal cramping, vomiting, and diarrhea after eating a hamburger yesterday afternoon. Plan: -- EKG -- Labs -- Pepcid and IV Fluids -- Reassess and disposition Prior Visits: Notes and results from previous visits were reviewed. Progress Notes: EKG: Ordered, reviewed, and independently interpreted the EKG. Rate : 93 BPM Rhythm : NSR Interpretation : Anteroseptal infarct 06/09/18 07:00 Case endorsed to /pending abd.U/S/reasses/final disposition Disposition/Present on Arrival - Present on Arrival Any Indicators Present on Arrival: No History of DVT/PE: No History of Uncontrolled Diabetes: No Urinary Catheter: No History of Decub. Ulcer: No History Surgical Site Infection Following: None - Disposition Have Diagnosis and Disposition been Completed?: No Diagnosis: Abdominal pain Disposition Time: 07:00 Condition: STABLE Referrals: Sita Meadows MD [Staff Provider] - Follow up with primary Forms: [employer] (Persian)
[2018-06-09 04:49] LABS: ALB/GLOB RATIO 1.2 (1.1-1.8); ALBUMIN 3.9 g/dL (3.0-4.8); ALT/SGPT < 6 U/L (7-56); AST/SGOT 41 U/L (14-36); BLOOD UREA NITROGEN 23 mg/dL (7-21); CALCIUM 8.9 mg/dL (8.4-10.5); GFR NON-AFRICAN AMERICAN > 60; LIPASE 159 U/L (23-300)
[2018-06-09 04:54] LABS: HEMOGLOBIN 12.5 g/dL (12.0-16.0); MEAN CELL VOLUME 88.9 fl (80.0-105.0); MEAN CORPUSCULAR HEMOGLOBIN 28.4 pg (25.0-35.0); MEAN PLATELET VOLUME 12.3 fl (7.0-11.0); RBC 4.4 10^6/uL (3.5-6.1); RED CELL DISTRIBUTION WIDTH 13.6 % (11.5-14.5)
--- NOTE | 2018-06-09 08:38 | ED PDOC ---
Physical Exam Vital Signs Temp Pulse Resp BP Pulse Ox 06/09/18 07:26 84 18 165/81 H 100 06/09/18 06:00 83 18 152/82 H 100 06/09/18 04:05 97.7 F 96 H 18 199/99 H 99 06/09/18 03:47 94 H 17 199/99 H 99 Medical Decision Making ED Course and Treatment: 06/09/18 07:00 Case endorse to me by Dr. Carballo. Pending abdominal ultrasound, reassessment/final disposition. pt previous declined ct scan. at this time, states as pain improved. declines ct imaging. us neg for acute pathology. pt asking for dc. states will return with owrsneing. abd soft no ttp at this time. advised pt she will need further imagign as an outpatient. will return with any worsening. 06/09/18 10:16 - Lab Interpretations Lab Results: Total Bilirubin 0.9 mg/dL (0.2-1.3) 06/09/18 04:05 AST 41 U/L (14-36) H D 06/09/18 04:05 ALT < 6 U/L (7-56) L 06/09/18 04:05 Alkaline Phosphatase 73 U/L (38-126) 06/09/18 04:05 Total Protein 7.2 g/dL (5.8-8.3) 06/09/18 04:05 Albumin 3.9 g/dL (3.0-4.8) 06/09/18 04:05 Globulin 3.3 gm/dL 06/09/18 04:05 Albumin/Globulin Ratio 1.2 (1.1-1.8) 06/09/18 04:05 Lipase 159 U/L (23-300) 06/09/18 04:05 - RAD Interpretation Radiology Orders: 06/09/18 05:28 ABDOMEN COMPLETE [US] Stat - Medication Orders Current Medication Orders: Sodium Chloride (Sodium Chloride 0.9%) 1,000 mls @ 100 mls/hr IV .Q10H BRITTNEY Last Admin: 06/09/18 04:20 Dose: 100 mls/hr eMAR Start Stop Document 06/09/18 04:20 CNR (Rec: 06/09/18 04:21 CNR [id number]) Intravenous Solution Start Date 06/09/18 Start Time 04:21 Discontinued Medications Famotidine (Pepcid) 20 mg IVP STAT STA Stop: 06/09/18 04:14 Last Admin: 06/09/18 04:22 Dose: 20 mg IVP Administration Document 06/09/18 04:22 CNR (Rec: 06/09/18 04:22 CNR [id number]) Charges for Administration # of IVP Administrations 1 Ketorolac Tromethamine (Toradol) 30 mg IVP ONCE ONE Stop: 06/09/18 05:10 Last Admin: 06/09/18 05:27 Dose: 30 mg MAR Pain Assessment Document 06/09/18 05:27 CNR (Rec: 06/09/18 05:28 CNR [id number] Pain Reassessment Is this a pain reassessment? No IVP Administration Document 06/09/18 05:27 CNR (Rec: 06/09/18 05:28 CNR [id number] Charges for Administration # of IVP Administrations 1 - Scribe Statement The provider has reviewed the documentation as recorded by the Zarina Aggarwal Provider Scribe Attestation: All medical record entries made by the Armaniibfarzana were at my direction and personally dictated by me. I have reviewed the chart and agree that the record accurately reflects my personal performance of the history, physical exam, medical decision making, and the department course for this patient. I have also personally directed, reviewed, and agree with the discharge instructions and disposition. Disposition/Present on Arrival - Present on Arrival Any Indicators Present on Arrival: No History of DVT/PE: No History of Uncontrolled Diabetes: No Urinary Catheter: No History of Decub. Ulcer: No History Surgical Site Infection Following: None - Disposition Have Diagnosis and Disposition been Completed?: Yes Diagnosis: Abdominal pain Disposition: HOME/ ROUTINE Disposition Time: 09:30 Condition: STABLE Discharge Instructions (ExitCare): Acute Abdomen (Belly Pain), Adult (DC) Additional Instructions: you are declining a ct scan. return to any er with worsening symptoms or concerns. Prescriptions: Famotidine [Pepcid] 20 mg PO DAILY #20 tab Referrals: Sita Meadows MD [Staff Provider] - Follow up with primary Forms: [employer] (Faroese)
--- NOTE | 2018-06-09 09:11 | US ---
HISTORY: pain COMPARISON: Abdominal ultrasound performed 05/13/17. TECHNIQUE: Sonographic evaluation of the abdomen. FINDINGS: LIVER: Measures 15.1 cm in sagittal dimension. Echogenic liver may be seen in setting of hepatic parenchymal disease or fatty infiltration. No focal hepatic mass identified. The main portal vein appears patent with normal directional flow. No intrahepatic bile duct dilatation. GALLBLADDER: No gallstones. No gallbladder wall thickening. Negative sonographic Parrish's sign as assessed by the hydraulic repairer. COMMON BILE DUCT: Measures 4 mm. PANCREAS: Not well visualized. RIGHT KIDNEY: Measures 10.5 x 3.8 x 4.9 cm. Cortical thinning. No obstructing calculus or hydronephrosis identified. LEFT KIDNEY: Measures 10.3 x 4.8 x 5.1 cm. Cortical thinning. No obstructing calculus or hydronephrosis identified. SPLEEN: Measures approximately 10.5 cm. AORTA: Limited views appear unremarkable. IVC: Limited views appear unremarkable. OTHER FINDINGS: None. IMPRESSION: Echogenic liver may be seen in setting of hepatic parenchymal disease or fatty infiltration. Bilateral renal cortical thinning.
[2018-06-09 09:24] VITALS: BP 162/76; PULSE 78; O2SAT 98
--- NOTE | 2018-06-09 20:38 | CARD ---
APPROVED REPORT Date of service: 06/09/2018 EKG Measurement Heart [id number] <Conclusion> Normal sinus rhythm Anteroseptal infarct, age undetermined Abnormal ECG
== END 2018-06-09 09:30 | disposition home or self-care (01) ==
LOC: ED 03:45
DX: R10.9 Unspecified abdominal pain (principal); I10 Essential (primary) hypertension; J44.9 Chronic obstructive pulmonary disease, unspecified; Z87.891 Personal history of nicotine dependence
CPT/HCPCS: 76700; 80053; 83690; 85027; 93005; 96374; 96375; 99285; J1885; J7030

== ENCOUNTER 2018-06-13 10:35 | Emergency (ER) | payer MEDICARE, MEDICAID ==
[2018-06-13 10:35] VITALS: BMI 21.9
[2018-06-13 10:45] VITALS: BP 221/79; PULSE 70; RESP 18; TEMP 98.2; O2SAT 98
== END 2018-06-13 10:47 | disposition left against medical advice (07) ==
LOC: ED 10:35
DX: Z02.89 Encounter for other administrative examinations (principal); R10.9 Unspecified abdominal pain

== ENCOUNTER 2018-07-05 08:29 | Emergency (ER) | payer MEDICARE, MEDICAID ==
[2018-07-05 08:37] VITALS: BMI 20.8
--- NOTE | 2018-07-05 09:06 | ED PDOC ---
Arrival/HPI - General Chief Complaint: Abdominal Pain Time Seen by Provider: 07/05/18 08:49 - History of Present Illness Narrative History of Present Illness (Text): 07/05/18 09:03 83 f with hx bowel obstruction presents to the ED with chief complaint of epigastric pain and diarrhea. Patient reports symptoms since last night, described as squeezing, waxes and wanes in intensity, stool described as loose, no vomit, no fevers. Patient states she has been on antibiotics for a abdominal wall infection which appears to be an abscess. Past Medical History - Provider Review Primary Care Provider: Ceasar Gonzalez - Infectious Disease Hx of Infectious Diseases: None - Tetanus Immunization Tetanus Immunization: Unknown - Cardiac Hx Cardiac Disorders: Yes Hx Angina: Yes Hx Hypertension: Yes - Pulmonary Hx Respiratory Disorders: Yes Hx Chronic Obstructive Pulmonary Disease (COPD): Yes Hx Pneumonia: No - Neurological Hx Neurological Disorder: No - HEENT Hx HEENT Disorder: Yes Other/Comment: TONSILLECTOMY - Renal Hx Renal Disorder: No - Endocrine/Metabolic Hx Endocrine Disorders: No - Hematological/Oncological Hx Blood Disorders: Yes Hx Shingles: Yes - Integumentary Hx Dermatological Disorder: No - Musculoskeletal/Rheumatological Hx Falls: No - Gastrointestinal Hx Gastrointestinal Disorders: Yes Hx Gastroesophageal Reflux: Yes Other/Comment: gastritis - Genitourinary/Gynecological Hx Genitourinary Disorders: No - Psychiatric Hx Psychophysiologic Disorder: Yes Hx Anxiety: Yes Hx Substance Use: No - Surgical History Hx Appendectomy: Yes Hx Hysterectomy: Yes Other/Comment: colon sx - Anesthesia Hx Anesthesia: Yes Hx Anesthesia Reactions: No Hx Malignant Hyperthermia: No - Suicidal Assessment Feels Threatened In Home Enviroment: No Family/Social History Family/Social History: Unknown Family HX Smoking Status: Former Smoker Hx Alcohol Use: No Hx Substance Use: No Hx Substance Use Treatment: No Allergies/Home Meds Allergies/Adverse Reactions: Allergies No Known Allergies Allergy (Verified 06/09/18 03:50) Home Medications: Home Meds Medication Instructions Recorded Confirmed Isosorbide Mononitrate 30 mg PO DAILY 10/26/11 01/09/18 Metoprolol Tartrate [Lopressor] 25 mg PO DAILY 01/26/16 01/09/18 Simvastatin [Zocor] 20 mg PO DAILY 01/26/16 01/09/18 Albuterol Sulfate [Proair Hfa] 0.09 mg IH PRN PRN 05/20/16 01/09/18 Famotidine [Pepcid] 20 mg PO BID 01/09/18 01/09/18 Review of Systems - Physician Review All systems were reviewed & negative as marked: Yes Physical Exam - Physical Exam Narrative Physical Exam (Text): 07/05/18 09:05 Gen: VS reviewed, alert, well developed, well nourished, nontoxic, mild distress Eye: EOMI, PERRL Neck: no JVD, supple, no adenopathy CV: regular rate, regular rhythm, no rubs,no murmur, S1, S2 Pulm: no distress, clear to auscultation, no wheeze, no rhonchi, breath sounds equal, no rales Abd: soft, mild epigastric tenderness, no guarding, no rebound, no rigidity, there are two abdominal wall wound-wound just right of the midline has a very mild clear to yellow drainage with only mild surrounding redness, the wound just left tot he midline appears dry and well into healing process. Ext: no edema Skin: good color, no rash, no cyanosis Psych: responds appropriately to questions, normal affect Neuro: oriented x3, CN2-12 intact grossly, motor intact, sensation intact Vital Signs Temp Pulse Resp BP Pulse Ox 07/05/18 08:37 97.7 F 68 18 178/74 H 98 Medical Decision Making ED Course and Treatment: 07/05/18 09:06 patient seen for acute abdominal cramping ad diarrhea while taking antibiotics for abdominal wall abscess. ddx including but not limited to infectious colitis. patient states that she absolutely cannot tolerate CT 07/05/18 11:12 patient reports that her pain has resolved and is ready to go home. patient was able to provide a stool sample before discharge and she is aware of pending result. i do not feel empiric tx for c.diff is indicated as the patient is nontoxic appearing with unremarkable labs. will dx and pt will follow up with pcp as soon as possible. - EKG Interpretation EKG Interpretation (Text): 07/05/18 11:17 ekg my read: nsr at 72 bpm, nml qrs, nml axis, no acute sttw abn Interpreted by ED Physician: Yes Disposition/Present on Arrival - Present on Arrival Any Indicators Present on Arrival: No History of DVT/PE: No History of Uncontrolled Diabetes: No Urinary Catheter: No History of Decub. Ulcer: No History Surgical Site Infection Following: None - Disposition Have Diagnosis and Disposition been Completed?: Yes Diagnosis: Abdominal pain, Diarrhea Disposition: HOME/ ROUTINE Disposition Time: 11:14 Patient Plan: Discharge Condition: STABLE Discharge Instructions (ExitCare): Diarrhea in Adolescents and Adults Additional Instructions: return for any new or worsening symptoms. follow up with your primary care doctor as soon as possible. Referrals: Ceasar Gonzalez MD [Primary Care Provider] - Follow up with primary Forms: [employer] (Albanian)
[2018-07-05 09:42] LABS: BASO # 0.01 K/mm3 (0.0-2.0); BASO % 0.1 % (0.0-3.0); EOS # 0.1 (0.0-0.7); EOS % 0.6 % (1.5-5.0); HEMOGLOBIN 12.3 g/dL (12.0-16.0); LYMPH # 0.8 (1.2-3.4); LYMPH % 8.3 % (22.0-35.0); MEAN CELL VOLUME 88.6 fl (80.0-105.0); MEAN CORPUSCULAR HGB CONC 31.5 g/dl (31.0-37.0); MEAN PLATELET VOLUME 11.4 fl (7.0-11.0); MONO # 0.5 (0.1-0.6); RBC 4.4 10^6/uL (3.5-6.1); RED CELL DISTRIBUTION WIDTH 13.5 % (11.5-14.5); WHITE BLOOD COUNT 9.4 10^3/uL (4.5-11.0)
[2018-07-05 09:44] LABS: VENOUS BLOOD GAS BASE EXCESS 4.2 mmol/L (0.0-2.0); VENOUS BLOOD GAS PO2 26 mm/Hg (30-55); VENOUS BLOOD PH 7.36 (7.32-7.43)
[2018-07-05 09:54] LABS: ALB/GLOB RATIO 1.3 (1.1-1.8); ALBUMIN 4.1 g/dL (3.0-4.8); ALT/SGPT 16 U/L (7-56); AST/SGOT 28 U/L (14-36); BLOOD UREA NITROGEN 21 mg/dL (7-21); CALCIUM 9.1 mg/dL (8.4-10.5); GFR NON-AFRICAN AMERICAN 60
[2018-07-05] MEDS ORDERED: Alum-Mag Hydrox-Simethicone Susp (30 mL) PO STA (10:27)
[2018-07-05 11:39] VITALS: BP 142/89; PULSE 82; RESP 19; TEMP 97.8; O2SAT 94
--- NOTE | 2018-07-05 22:18 | CARD ---
APPROVED REPORT Date of service: 07/05/2018 EKG Measurement Heart [id number] 128P79 [id number] <Conclusion> Sinus rhythm with premature supraventricular complexes Slow R wave progressio V1-3. CCR Otherwise normal ECG
== END 2018-07-05 11:40 | disposition home or self-care (01) ==
LOC: ED 08:29
DX: R10.13 Epigastric pain (principal); R19.7 Diarrhea, unspecified; I10 Essential (primary) hypertension; Z87.891 Personal history of nicotine dependence; J44.9 Chronic obstructive pulmonary disease, unspecified

== ENCOUNTER 2018-07-09 00:40 | Emergency (ER) | payer MEDICARE, MEDICAID ==
[2018-07-09 00:40] VITALS: BMI 20.8
[2018-07-09] MEDS ORDERED: Sucralfate 1 gm/10 ml Oral Susp UD PO STA (01:02)
[2018-07-09 01:33] LABS: HEMOGLOBIN 12.6 g/dL (12.0-16.0); MEAN CORPUSCULAR HEMOGLOBIN 28.6 pg (25.0-35.0); MEAN CORPUSCULAR HGB CONC 32.5 g/dl (31.0-37.0); MEAN PLATELET VOLUME 11.3 fl (7.0-11.0); RBC 4.41 10^6/uL (3.5-6.1); RED CELL DISTRIBUTION WIDTH 13.4 % (11.5-14.5); WHITE BLOOD COUNT 7.7 10^3/uL (4.5-11.0)
[2018-07-09 01:42] VITALS: TEMP 98
--- NOTE | 2018-07-09 01:53 | ED PDOC ---
Arrival/HPI - General Chief Complaint: Abdominal Pain Time Seen by Provider: 07/09/18 00:42 Historian: Patient - History of Present Illness Narrative History of Present Illness (Text): 07/09/18 01:49 83 year old female, with a past medical history of COPD, GERD, and gastritis, who presents to the emergency department complaining of some stomach discomfort.Patient states it is her gastritis "acting up". Patient denies any nausea, vomiting, diarrhea, chest pain, shortness of breath, or any other somatic complaints. PMD: Dr. Gonzalez Time/Duration: 24 hours Symptom Onset: Gradual Symptom Course: Unchanged Activities at Onset: Light Context: Home Past Medical History - Provider Review Nursing Documentation Reviewed: Yes - Infectious Disease Hx of Infectious Diseases: None - Tetanus Immunization Tetanus Immunization: Unknown - Cardiac Hx Cardiac Disorders: Yes Hx Angina: Yes Hx Hypertension: Yes - Pulmonary Hx Respiratory Disorders: Yes Hx Chronic Obstructive Pulmonary Disease (COPD): Yes Hx Pneumonia: No - Neurological Hx Neurological Disorder: No - HEENT Hx HEENT Disorder: Yes Other/Comment: TONSILLECTOMY - Renal Hx Renal Disorder: No - Endocrine/Metabolic Hx Endocrine Disorders: No - Hematological/Oncological Hx Blood Disorders: Yes Hx Shingles: Yes - Integumentary Hx Dermatological Disorder: No - Musculoskeletal/Rheumatological Hx Falls: No - Gastrointestinal Hx Gastrointestinal Disorders: Yes Hx Gastroesophageal Reflux: Yes Other/Comment: gastritis - Genitourinary/Gynecological Hx Genitourinary Disorders: No - Psychiatric Hx Psychophysiologic Disorder: Yes Hx Anxiety: Yes Hx Substance Use: No - Surgical History Hx Appendectomy: Yes Hx Hysterectomy: Yes Other/Comment: colon sx - Anesthesia Hx Anesthesia: Yes Hx Anesthesia Reactions: No Hx Malignant Hyperthermia: No - Suicidal Assessment Feels Threatened In Home Enviroment: No Family/Social History - Physician Review Nursing Documentation Reviewed: Yes Family/Social History: Unknown Family HX Smoking Status: Former Smoker Hx Alcohol Use: No Hx Substance Use: No Hx Substance Use Treatment: No Allergies/Home Meds Allergies/Adverse Reactions: Allergies No Known Allergies Allergy (Verified 06/09/18 03:50) Home Medications: Home Meds Medication Instructions Recorded Confirmed Isosorbide Mononitrate 30 mg PO DAILY 10/26/11 01/09/18 Metoprolol Tartrate [Lopressor] 25 mg PO DAILY 01/26/16 01/09/18 Simvastatin [Zocor] 20 mg PO DAILY 01/26/16 01/09/18 Albuterol Sulfate [Proair Hfa] 0.09 mg IH PRN PRN 05/20/16 01/09/18 Famotidine [Pepcid] 20 mg PO BID 01/09/18 01/09/18 Review of Systems - Physician Review All systems were reviewed & negative as marked: Yes - Review of Systems Constitutional: absent: Fevers Respiratory: absent: SOB Cardiovascular: absent: Chest Pain Gastrointestinal: Abdominal Pain. absent: Diarrhea, Nausea, Vomiting Physical Exam Vital Signs Reviewed: Yes Vital Signs Temp Pulse Resp BP Pulse Ox 07/09/18 01:42 98.0 F 76 18 176/78 H 100 Temperature: Afebrile Blood Pressure: Normal Pulse: Regular Respiratory Rate: Normal Appearance: Positive for: Well-Appearing, Non-Toxic, Comfortable Pain Distress: None Mental Status: Positive for: Alert and Oriented X 3 - Systems Exam Head: Present: Atraumatic, Normocephalic Pupils: Present: PERRL Extroacular Muscles: Present: EOMI Conjunctiva: Present: Normal Mouth: Present: Moist Mucous Membranes Neck: Present: Normal Range of Motion Respiratory/Chest: Present: Clear to Auscultation, Good Air Exchange. No: Respiratory Distress, Accessory Muscle Use Cardiovascular: Present: Regular Rate and Rhythm, Normal S1, S2. No: Murmurs Abdomen: Present: Other (abdomen soft). No: Tenderness, Distention, Peritoneal Signs Back: Present: Normal Inspection Upper Extremity: Present: Normal Inspection. No: Cyanosis, Edema Lower Extremity: Present: Normal Inspection. No: Edema Neurological: Present: GCS=15, CN II-XII Intact, Speech Normal Skin: Present: Warm, Dry, Normal Color. No: Rashes Psychiatric: Present: Alert, Oriented x 3, Normal Insight, Normal Concentration Medical Decision Making ED Course and Treatment: 07/09/18 01:47 Impression: 83 year old female presents to the emergency department complaining of abdominal pain x earlier today. Differential Diagnosis included but are not limited to: Plan: -- EKG -- Labs -- Pepcid -- Carafate -- Reassess and disposition Prior Visits: Notes and results from previous visits were reviewed. Progress Notes: 07/09/18 03:25 EKG-NSR@73,no acute changes 07/09/18 03:41 Patient remained asymptomatic in emergency department following treatment.Full discharge instructions given. - Medication Orders Current Medication Orders: Discontinued Medications Famotidine (Pepcid) 20 mg IVP STAT STA Stop: 07/09/18 01:02 Last Admin: 07/09/18 01:35 Dose: 20 mg IVP Administration Document 07/09/18 01:35 SS (Rec: 07/09/18 01:35 SS [id number]) Charges for Administration # of IVP Administrations 1 Sucralfate (Carafate Oral Susp) 1 gm PO STAT STA Stop: 07/09/18 01:03 Last Admin: 07/09/18 01:35 Dose: 1 gm - Scribe Statement The provider has reviewed the documentation as recorded by the Zarina Forrest All medical record entries made by the Zarina were at my direction and personally dictated by me. I have reviewed the chart and agree that the record accurately reflects my personal performance of the history, physical exam, medical decision making, and the department course for this patient. I have also personally directed, reviewed, and agree with the discharge instructions and disposition. Disposition/Present on Arrival - Present on Arrival Any Indicators Present on Arrival: No History of DVT/PE: No History of Uncontrolled Diabetes: No Urinary Catheter: No History of Decub. Ulcer: No History Surgical Site Infection Following: None - Disposition Have Diagnosis and Disposition been Completed?: Yes Diagnosis: Gastritis Disposition: HOME/ ROUTINE Disposition Time: 03:36 Patient Plan: Discharge Patient Problems: Current Active Problems Problem Status Onset Gastritis Acute Condition: STABLE Discharge Instructions (ExitCare): Gastritis (DC) Additional Instructions: Take meds as prescribed/follow up with your doctor this week Prescriptions: Phenobarb/Hyoscy/Atropine/Scop [ Tablet] 16.2 mg PO TID PRN #12 tablet PRN Reason: Gi Distress Referrals: Ceasar Gonzalez MD [Primary Care Provider] - Follow up with primary Forms: [employer] (Turkish)
[2018-07-09 02:20] LABS: ALB/GLOB RATIO 1.4 (1.1-1.8); ALBUMIN 4.1 g/dL (3.0-4.8); ALT/SGPT 20 U/L (7-56); AST/SGOT 35 U/L (14-36); BLOOD UREA NITROGEN 29 mg/dL (7-21); CALCIUM 9.4 mg/dL (8.4-10.5); GFR NON-AFRICAN AMERICAN 53; LIPASE 173 U/L (23-300)
[2018-07-09 04:20] VITALS: BP 135/71; PULSE 72; RESP 16; O2SAT 98
--- NOTE | 2018-07-09 08:53 | CARD ---
APPROVED REPORT Date of service: 07/09/2018 EKG Measurement Heart [id number] [id number] <Conclusion> Normal sinus rhythm Possible Anterior infarct, age undetermined Abnormal ECG
== END 2018-07-09 04:05 | disposition home or self-care (01) ==
LOC: ED 00:40
DX: K29.70 Gastritis, unspecified, without bleeding (principal); I10 Essential (primary) hypertension; Z87.891 Personal history of nicotine dependence

== ENCOUNTER 2018-07-11 18:28 | Emergency (ER) | payer MEDICARE, MEDICAID ==
[2018-07-11 18:30] VITALS: BMI 21.0
[2018-07-11 18:35] VITALS: O2SAT 98
--- NOTE | 2018-07-11 19:11 | ED PDOC ---
Arrival/HPI - General Historian: Patient - History of Present Illness Narrative History of Present Illness (Text): 07/11/18 19:16 Patient is an 83 yo female with GERD who presents with an abdominal lesion. Patient states that she saw surgeon Dr. Tran in his office for an abscess yesterday. He told her that she has a retained suture from a previous procedure that he would remove for her in a few days. She is already on antibiotics. She states that she originally came to the ED because the nurse at Dr. Tran' office told her that Dr. Tran might be able to see her more quickly if she came to the hospital. <Jocelyne Knapp - Last Filed: 07/11/18 19:07> <David Riojas - Last Filed: 07/11/18 19:32> - General Chief Complaint: Wound Check Time Seen by Provider: 07/11/18 19:00 Past Medical History - Infectious Disease Hx of Infectious Diseases: None - Tetanus Immunization Tetanus Immunization: Unknown - Reproductive Menopause: Yes - Cardiac Hx Cardiac Disorders: Yes Hx Angina: Yes Hx Hypertension: Yes - Pulmonary Hx Respiratory Disorders: Yes Hx Chronic Obstructive Pulmonary Disease (COPD): Yes Hx Pneumonia: No - Neurological Hx Neurological Disorder: No - HEENT Hx HEENT Disorder: Yes Other/Comment: TONSILLECTOMY - Renal Hx Renal Disorder: No - Endocrine/Metabolic Hx Endocrine Disorders: No - Hematological/Oncological Hx Blood Disorders: Yes Hx Shingles: Yes - Integumentary Hx Dermatological Disorder: No - Musculoskeletal/Rheumatological Hx Falls: No - Gastrointestinal Hx Gastrointestinal Disorders: Yes Hx Gastroesophageal Reflux: Yes Other/Comment: gastritis - Genitourinary/Gynecological Hx Genitourinary Disorders: No - Psychiatric Hx Psychophysiologic Disorder: Yes Hx Anxiety: Yes Hx Substance Use: No - Surgical History Hx Appendectomy: Yes Hx Hysterectomy: Yes Other/Comment: colon sx - Anesthesia Hx Anesthesia: Yes Hx Anesthesia Reactions: No Hx Malignant Hyperthermia: No - Suicidal Assessment Feels Threatened In Home Enviroment: No <Jocelyne Knapp - Last Filed: 07/11/18 19:07> Family/Social History Family/Social History: Unknown Family HX Smoking Status: Former Smoker Hx Alcohol Use: No Hx Substance Use: No Hx Substance Use Treatment: No <Jocelyne Knapp - Last Filed: 07/11/18 19:07> Allergies/Home Meds <Jocelyne Knapp - Last Filed: 07/11/18 19:07> <David Riojas - Last Filed: 07/11/18 19:32> Allergies/Adverse Reactions: Allergies No Known Allergies Allergy (Verified 06/09/18 03:50) Home Medications: Home Meds Medication Instructions Recorded Confirmed Isosorbide Mononitrate 30 mg PO DAILY 10/26/11 01/09/18 Metoprolol Tartrate [Lopressor] 25 mg PO DAILY 01/26/16 01/09/18 Simvastatin [Zocor] 20 mg PO DAILY 01/26/16 01/09/18 Albuterol Sulfate [Proair Hfa] 0.09 mg IH PRN PRN 05/20/16 01/09/18 Famotidine [Pepcid] 20 mg PO BID 01/09/18 01/09/18 Review of Systems - Review of Systems Constitutional: absent: Fatigue, Fevers Respiratory: absent: SOB, Cough Cardiovascular: absent: Chest Pain, Palpitations Gastrointestinal: Abdominal Pain (chronic). absent: Nausea, Vomiting Genitourinary Female: absent: Dysuria, Hematuria Musculoskeletal: absent: Arthralgias Skin: Abscess Neurological: absent: Headache, Focal Weakness Endocrine: absent: Diaphoresis Hemo/Lymphatic: absent: Adenopathy <Jocelyne Knapp - Last Filed: 07/11/18 19:07> Physical Exam Vital Signs Reviewed: Yes Vital Signs Temp Pulse Resp BP Pulse Ox 07/11/18 18:30 97.7 F 77 19 176/90 H 98 Temperature: Afebrile Blood Pressure: Hypertensive Pulse: Regular Respiratory Rate: Normal Appearance: Positive for: Non-Toxic Pain Distress: None Mental Status: Positive for: Alert and Oriented X 3 - Systems Exam Head: Present: Atraumatic, Normocephalic Pupils: Present: PERRL Extroacular Muscles: Present: EOMI Respiratory/Chest: Present: Clear to Auscultation, Good Air Exchange Cardiovascular: Present: Regular Rate and Rhythm, Normal S1, S2 Abdomen: Present: Tenderness, Normal Bowel Sounds. No: Distention Skin: Present: Warm, Abscess (LLQ abd with purulent drainage, no blood) Psychiatric: Present: Alert, Oriented x 3, Normal Insight, Normal Concentration <Jocelyne Knapp - Last Filed: 07/11/18 19:07> Vital Signs Temp Pulse Resp BP Pulse Ox 07/11/18 18:30 97.7 F 77 19 176/90 H 98 <David Riojas - Last Filed: 07/11/18 19:32> Medical Decision Making ED Course and Treatment: 07/11/18 19:24 Patient states that she would like to go home and keep her outpatient appointment with Dr. Tran as originally planned. <Jocelyne Knapp - Last Filed: 07/11/18 19:07> ED Course and Treatment: 07/11/18 19:32 Patient Seen with Resident: In agreement with resident note which contains more details about the patient. Patient seen and evaluated with resident. Came up with plan and treatment together. <David Riojas - Last Filed: 07/11/18 19:32> - PA / HVAC/R SERVICE TECHNICIAN / Resident Statement / has reviewed & agrees with the documentation as recorded. / has examined the patient and agrees with the treatment plan. <David Riojas - Last Filed: 07/11/18 19:32> Disposition/Present on Arrival - Present on Arrival Any Indicators Present on Arrival: No History of DVT/PE: No History of Uncontrolled Diabetes: No Urinary Catheter: No History of Decub. Ulcer: No History Surgical Site Infection Following: None - Disposition Have Diagnosis and Disposition been Completed?: Yes Disposition Time: 19:25 Patient Plan: Discharge <Jocelyne Knapp - Last Filed: 07/11/18 19:07> <David Riojas - Last Filed: 07/11/18 19:32> - Disposition Diagnosis: Abscess Disposition: HOME/ ROUTINE Condition: STABLE Print Language: SAMOAN Additional Instructions: Follow-up with Dr. Tran as originally scheduled. Continue antibiotics as previously prescribed. Referrals: Sita Meadows MD [Primary Care Provider] - Follow up with primary Forms: [employer] (Bulgarian)
[2018-07-11 19:36] VITALS: BP 166/71; PULSE 66; RESP 18; TEMP 97.6
== END 2018-07-11 19:41 | disposition home or self-care (01) ==
LOC: ED 18:28
DX: L02.211 Cutaneous abscess of abdominal wall (principal)

== ENCOUNTER 2018-07-25 21:33 | Emergency (ER) | payer MEDICARE, MEDICAID ==
[2018-07-25 21:34] VITALS: BMI 21.0
[2018-07-25 21:50] VITALS: RESP 18; TEMP 97.7
--- NOTE | 2018-07-25 22:10 | ED PDOC ---
Arrival/HPI <Prince Ruiz - Last Filed: 07/25/18 22:53> - General Historian: Patient - History of Present Illness Narrative History of Present Illness (Text): 07/25/18 22:07 Pt is an 83 yo female with a COPD, HTN, HLD, angina, gastritis who presents to the ED complaining of abdominal pain which she describes as gastritis which is chronic but has gotten worse over the past few days. Pt denies nausea, vomiting, constipation, diarrhea. Pt tried taking her usual protonix with no relief. Pt reports tight abdominal pain, denies blood in the stool. Time/Duration: > month Quality: Aching Severity Level: 4 Activities at Onset: Rest Context: Sitting <Drake Hidalgo - Last Filed: 07/25/18 22:59> - General Chief Complaint: Abdominal Pain Past Medical History - Infectious Disease Hx of Infectious Diseases: None - Tetanus Immunization Tetanus Immunization: Unknown - Cardiac Hx Cardiac Disorders: Yes Hx Angina: Yes Hx Hypertension: Yes - Pulmonary Hx Respiratory Disorders: Yes Hx Chronic Obstructive Pulmonary Disease (COPD): Yes Hx Pneumonia: No - Neurological Hx Neurological Disorder: No - HEENT Hx HEENT Disorder: Yes Other/Comment: TONSILLECTOMY - Renal Hx Renal Disorder: No - Endocrine/Metabolic Hx Endocrine Disorders: No - Hematological/Oncological Hx Blood Disorders: Yes Hx Shingles: Yes - Integumentary Hx Dermatological Disorder: No - Musculoskeletal/Rheumatological Hx Falls: No - Gastrointestinal Hx Gastrointestinal Disorders: Yes Hx Gastritis: Yes Hx Gastroesophageal Reflux: Yes Other/Comment: gastritis - Genitourinary/Gynecological Hx Genitourinary Disorders: No - Psychiatric Hx Psychophysiologic Disorder: Yes Hx Anxiety: Yes Hx Substance Use: No - Surgical History Hx Appendectomy: Yes Hx Hysterectomy: Yes Other/Comment: colon sx - Anesthesia Hx Anesthesia: Yes Hx Anesthesia Reactions: No Hx Malignant Hyperthermia: No - Suicidal Assessment Feels Threatened In Home Enviroment: No <Drake Hidalgo - Last Filed: 07/25/18 22:59> Family/Social History Family/Social History: No Known Family HX Smoking Status: Former Smoker Hx Alcohol Use: No Hx Substance Use: No Hx Substance Use Treatment: No <Drake Hidalgo - Last Filed: 07/25/18 22:59> Allergies/Home Meds <Prince Ruiz - Last Filed: 07/25/18 22:53> <Drake Hidalgo - Last Filed: 07/25/18 22:59> Allergies/Adverse Reactions: Allergies No Known Allergies Allergy (Verified 07/25/18 21:39) Home Medications: Home Meds Medication Instructions Recorded Confirmed Isosorbide Mononitrate 30 mg PO DAILY 10/26/11 01/09/18 Metoprolol Tartrate [Lopressor] 25 mg PO DAILY 01/26/16 01/09/18 Simvastatin [Zocor] 20 mg PO DAILY 01/26/16 01/09/18 Albuterol Sulfate [Proair Hfa] 0.09 mg IH PRN PRN 05/20/16 01/09/18 Famotidine [Pepcid] 20 mg PO BID 01/09/18 01/09/18 Review of Systems - Review of Systems Constitutional: Normal Eyes: Normal ENT: Normal Respiratory: Normal Cardiovascular: Normal Gastrointestinal: Abdominal Pain. absent: Stool Changes, Constipation, Diarrhea, Nausea, Vomiting, Appetite Changes, Hematochezia, Hematemesis, Anorexia, Food Intolerance Musculoskeletal: Normal Skin: Normal Neurological: Normal Endocrine: Normal Hemo/Lymphatic: Normal Psychiatric: Normal <Karla Hidalgone Jhonny - Last Filed: 07/25/18 22:59> Physical Exam Vital Signs Temp Pulse Resp BP Pulse Ox 07/25/18 21:43 97.7 F 94 H 18 170/84 H 99 <Prince Ruiz - Last Filed: 07/25/18 22:53> Vital Signs Reviewed: Yes Vital Signs Temp Pulse Resp BP Pulse Ox 07/25/18 21:43 97.7 F 94 H 18 170/84 H 99 Temperature: Afebrile Blood Pressure: Normal Pulse: Regular Respiratory Rate: Normal Appearance: Positive for: Well-Appearing Mental Status: Positive for: Alert and Oriented X 3 - Systems Exam Head: Present: Atraumatic, Normocephalic Pupils: Present: PERRL Extroacular Muscles: Present: EOMI Mouth: Present: Moist Mucous Membranes Respiratory/Chest: Present: Clear to Auscultation, Good Air Exchange. No: Respiratory Distress, Accessory Muscle Use Cardiovascular: Present: Regular Rate and Rhythm, Normal S1, S2 Abdomen: Present: Tenderness, Normal Bowel Sounds. No: Distention Upper Extremity: Present: Normal Inspection Lower Extremity: Present: Normal Inspection, NORMAL PULSES Neurological: Present: GCS=15, CN II-XII Intact Skin: Present: Warm, Dry, Normal Color Psychiatric: Present: Alert, Oriented x 3 <Drake Hidalgo - Last Filed: 07/25/18 22:59> Medical Decision Making - Lab Interpretations Lab Results: Total Bilirubin 0.5 mg/dL (0.2-1.3) 07/25/18 22:15 AST 23 U/L (14-36) 07/25/18 22:15 ALT 13 U/L (7-56) 07/25/18 22:15 Alkaline Phosphatase 76 U/L (38-126) 07/25/18 22:15 Total Protein 6.7 g/dL (5.8-8.3) 07/25/18 22:15 Albumin 3.8 g/dL (3.0-4.8) 07/25/18 22:15 Globulin 2.9 gm/dL 07/25/18 22:15 Albumin/Globulin Ratio 1.3 (1.1-1.8) 07/25/18 22:15 Lipase 171 U/L (23-300) 07/25/18 22:15 - EKG Interpretation EKG Interpretation (Text): 07/25/18 22:54 Normal sinus rhythm @ 83bpm Normal QRS, Normal intervals No acute STT wave abnormality Interpreted by ED Physician: Yes Type: 12 lead EKG <Prince Ruiz - Last Filed: 07/25/18 22:53> ED Course and Treatment: 07/25/18 22:13 CBC CMP pt is refusing CT due to claustrophobia during a CT at a previous hospital visit, the importance of the abdominal CT was explained to the pt 07/25/18 22:[address] and is signing out AMA Pt seen, examined, assessment and plan discussed with Dr Joseph Hidalgo PGY1 <Drake Hidalgo - Last Filed: 07/25/18 22:59> Disposition/Present on Arrival <Prince Ruiz - Last Filed: 07/25/18 22:53> - Present on Arrival Any Indicators Present on Arrival: No History of DVT/PE: No History of Uncontrolled Diabetes: No Urinary Catheter: No History of Decub. Ulcer: No History Surgical Site Infection Following: None - Disposition Have Diagnosis and Disposition been Completed?: Yes Disposition Time: :59 Patient Plan: Discharge <Drake Hidalgo - Last Filed: 07/25/18 22:59> - Disposition Diagnosis: Abdominal pain, Gastritis Disposition: HOME/ ROUTINE Patient Problems: Current Active Problems Problem Status Onset Abdominal pain Acute Gastritis Acute Condition: GOOD Forms: [facility] ([place])
[2018-07-25 22:21] LABS: BASO # 0.01 K/mm3 (0.0-2.0); BASO % 0.1 % (0.0-3.0); EOS # 0.1 (0.0-0.7); EOS % 0.9 % (1.5-5.0); HEMOGLOBIN 12.5 g/dL (12.0-16.0); LYMPH # 1.2 (1.2-3.4); LYMPH % 11.4 % (22.0-35.0); MEAN CELL VOLUME 88.2 fl (80.0-105.0); MEAN CORPUSCULAR HEMOGLOBIN 28.3 pg (25.0-35.0); MEAN CORPUSCULAR HGB CONC 32.1 g/dl (31.0-37.0); MEAN PLATELET VOLUME 10.9 fl (7.0-11.0); MONO # 0.6 (0.1-0.6); MONO % 5.5 % (1.0-6.0); RBC 4.42 10^6/uL (3.5-6.1); RED CELL DISTRIBUTION WIDTH 13.6 % (11.5-14.5); WHITE BLOOD COUNT 10.1 10^3/uL (4.5-11.0)
[2018-07-25 22:29] LABS: ALB/GLOB RATIO 1.3 (1.1-1.8); ALBUMIN 3.8 g/dL (3.0-4.8); ALT/SGPT 13 U/L (7-56); AST/SGOT 23 U/L (14-36); BLOOD UREA NITROGEN 23 mg/dL (7-21); GFR NON-AFRICAN AMERICAN > 60; LIPASE 171 U/L (23-300)
[2018-07-25 23:02] VITALS: BP 168/79; PULSE 80; O2SAT 100
--- NOTE | 2018-07-26 18:22 | CARD ---
APPROVED REPORT Date of service: 07/25/2018 EKG Measurement Heart [id number] <Conclusion> Normal sinus rhythm Septal infarct, age undetermined Abnormal ECG
== END 2018-07-25 23:02 | disposition left against medical advice (07) ==
LOC: ED 21:33
DX: K29.70 Gastritis, unspecified, without bleeding (principal); R10.9 Unspecified abdominal pain; E78.5 Hyperlipidemia, unspecified; I10 Essential (primary) hypertension; Z87.891 Personal history of nicotine dependence; J44.9 Chronic obstructive pulmonary disease, unspecified